=== PATIENT | male | born 1945 | race Caucasian/White ===

== ENCOUNTER 2021-11-29 04:20 | Inpatient (IN) | payer MEDICARE, OTHER ==
[~2021-11-29] VITALS: Ht 180.3 cm; Wt 98.9 kg
[~2021-11-29 04:20] MED LIST: AMLO1CAP2 PO; CIPR2.5D13 EACHEYE; ESCI10TA PO; FERR-43 PO; GABA600T PO; GLIP10TA10 PO; LOSA100T32 PO; OMEP40CA20 PO; OXYB15TA9 PO; REFRESH OP
[2021-11-29] MEDS ORDERED: ONDANSETRON HCL 4MG/2ML INJ IV STA (04:41)
[2021-11-29] MEDS ORDERED: VANCOMYCIN 1G PREMIX 200 ML IV ONE (04:45)
[2021-11-29] MEDS ORDERED: SODIUM CHLORIDE 0.9% 500 ML IV ONE (04:45)
[2021-11-29] MEDS ORDERED: PIPERACILLIN/TAZ 3.375G PREMIX 50 ML IV ONE (04:45)
[2021-11-29] MEDS: ACETAMINOPHEN 325MG TABLET PO STA ×2 (05:14→05:21)
[2021-11-29 05:17] LABS: HEMOGLOBIN. 10.5 g/dL (14.0-18.0); MEAN CORPUSCULAR VOLUME 91.8 fL (80.0-94.0); MEAN PLATELET VOLUME 8.2 fl (7.4-10.4); PLATELET 201 x1000/uL (130-400); RED BLOOD CELL COUNT 3.49 mill/uL (4.7-6.1); RED CELL DISTRIBUTION WIDTH 14.1 % (11.6-14.6)
[2021-11-29 05:27] LABS: CHLORIDE 88 mEq/L (98-107)
[2021-11-29 06:06] LABS: CLARITY URINE CLOUDY (CLEAR); COLOR URINE YELLOW (YELLOW); KETONES URINE NEGATIVE (NEGATIVE); LEUKOCYTE ESTERASE URINE 1+ (NEGATIVE); NITRITE URINE NEGATIVE (NEGATIVE); OCCULT BLOOD URINE 3+ (NEGATIVE); PROTEIN URINE 4+ (NEGATIVE); UROBILINOGEN URINE 0.2 E.U./dL (0.2-1.0)
[2021-11-29] MEDS ORDERED: MAGNESIUM/ALUMINUM HYDROXIDE/SIMETHICONE 30ML UDC PO PRN (07:30)
[2021-11-29] MEDS ORDERED: ENOXAPARIN 40MG/0.4ML SYR SUBCUT SCH (07:30)
[2021-11-29 07:43] LABS: PLATELET ESTIMATE NORMAL
[2021-11-29 07:54] LABS: BG BASE EXCESS -2.1 mmol/L (-2.0-2.0); BG CARBOXYHEMOGLOBIN 0.7 % (0.5-1.5); BG DEOXYHEMOGLOBIN 2.1 % (0.0-5.0); BG FRACTION INSPIRED OXYGEN 50; BG HCO3 ACT 23.3 mmol/L (22.0-26.0); BG METHEMOGLOBIN 0.3 % (0.0-1.5); BG OXYGEN SATURATION 97.9 % (92.0-98.5); BG OXYHEMOGLOBIN 96.9 % (94.0-97.0); BG PCO2 42.2 mmHg (35.0-45.0); BG PH 7.359 (7.350-7.450); BG PO2 109.2 mmHg (75.0-100.0); BG SAMPLE SITE RIGHT RADIAL; BG TOTAL HEMOGLOBIN 10.2 g/dL (12.0-18.0); BG VENT MODE MASK - SIMPLE
[2021-11-29] MEDS ORDERED: CEFTRIAXONE 1 G PREMIX 50 ML IV SCH (08:30)
[2021-11-29] MEDS: ACETAMINOPHEN 650MG SUPP PR ONE ×2 (08:55→10:30)
[2021-11-29] MEDS ORDERED: AZITHROMYCIN 500MG/250ML 250 ML IV SCH (09:30)
[2021-11-29] MEDS: SODIUM CHLORIDE 0.45% 1,000 ML IV SCH ×2 (09:38→23:31)
[2021-11-29] MEDS: ENOXAPARIN 30MG/0.3ML SYR SUBCUT SCH (09:39)
[2021-11-29] MEDS ORDERED: DEXTROSE 50% WATER 50ML SYRINGE IV PRN (11:45)
[2021-11-29] MEDS: BLOOD SUGAR DIAGNOSTIC STRIP TEST SCH ×2 (12:00→18:00)
[2021-11-29] MEDS: INSULIN LISPRO (HIGH DOSE) 100 UNITS/ML SUBCUT SCH ×2 (13:07→20:48)
[2021-11-29 18:58] VITALS: BP 158/62
[2021-11-29] MEDS ORDERED: ZOLP10TA2 PO (19:24)
[2021-11-29] MEDS ORDERED: SALM50DI INH (19:24)
[2021-11-29] MEDS ORDERED: POTA20TA82 MT (19:24)
[2021-11-29] MEDS ORDERED: LEVO75TA7 PO (19:24)
[2021-11-29] MEDS ORDERED: ESCI5SOL2 MT (19:24)
[2021-11-29] MEDS ORDERED: CLOP-31 PO (19:24)
[2021-11-29] MEDS ORDERED: LIP40 PO (19:24)
[2021-11-29] MEDS ORDERED: PREG75CA PO (19:24)
[2021-11-29] MEDS ORDERED: LEVO75TA7 MT (19:24)
[2021-11-29 20:00] VITALS: BP 115/45
[2021-11-29] MEDS ORDERED: IPRATROPIUM/ALBUTEROL 0.5-3(2.5)MG/3ML NEB HHN PRN (20:45)
[2021-11-29 22:00] VITALS: BP 127/51
[2021-11-30] VITALS (11 sets, daily range): BP systolic 107–133; BP diastolic 42–56
[2021-11-30] MEDS: IPRATROPIUM/ALBUTEROL 0.5-3(2.5)MG/3ML NEB HHN SCH ×6 (01:19→21:41)
[2021-11-30] MEDS: ACETYLCYSTEINE 100MG/ML 10% VIAL 4ML INH SCH ×2 (01:28→10:15)
[2021-11-30] MEDS: ACETAMINOPHEN 325MG TABLET PO PRN ×4 (02:06→19:09)
[2021-11-30] MEDS: INSULIN LISPRO (HIGH DOSE) 100 UNITS/ML SUBCUT SCH ×4 (05:54→17:10)
[2021-11-30] MEDS: BLOOD SUGAR DIAGNOSTIC STRIP TEST SCH ×4 (05:55→16:47)
[2021-11-30 06:50] LABS: HEMATOCRIT. 26.2 % (42.0-52.0); MEAN CORPUSCULAR HEMOGLOBIN 31.2 pg (28.0-32.0); MEAN CORPUSCULAR VOLUME 91.4 fL (80.0-94.0); PLATELET 182 x1000/uL (130-400); RED BLOOD CELL COUNT 2.87 mill/uL (4.7-6.1); RED CELL DISTRIBUTION WIDTH 14.6 % (11.6-14.6)
[2021-11-30 07:05] LABS: CHLORIDE 89 mEq/L (98-107)
[2021-11-30 07:13] LABS: LDL CHOLESTEROL 30 mg/dL (5-100)
[2021-11-30 07:15] LABS: HDL CHOLESTEROL 16 mg/dL (40-59)
[2021-11-30] MEDS: ENOXAPARIN 30MG/0.3ML SYR SUBCUT SCH (08:31)
[2021-11-30] MEDS: CEFTRIAXONE 1,000 MG in DEXTROSE 5% WATER 50 ML IV SCH (08:32)
[2021-11-30] MEDS: SODIUM CHLORIDE 0.45% 1,000 ML IV SCH ×2 (08:32→21:51)
[2021-11-30] MEDS: AZITHROMYCIN 500 MG in DEXT 5% WATER 250 ML IV SCH (09:35)
[2021-11-30] MEDS ORDERED: POTASSIUM CHLORIDE INJ 40 MEQ in DEXT 5% WATER 250 ML IV ONE (10:15)
[2021-11-30] MEDS: KCL 20MEQ/100ML X 2 FOR TOTAL KCL 40MEQ/200ML IV SCH ×2 (11:51→14:48)
[2021-11-30 14:06] LABS: CREATINE KINASE 24893 IU/L (39-308)
[2021-11-30 16:59] LABS: PLATELET ESTIMATE NORMAL
[2021-12-01] VITALS (7 sets, daily range): BP systolic 95–138; BP diastolic 48–59
[2021-12-01] MEDS: INSULIN LISPRO (HIGH DOSE) 100 UNITS/ML SUBCUT SCH ×5 (00:36→23:41)
[2021-12-01] MEDS: IPRATROPIUM/ALBUTEROL 0.5-3(2.5)MG/3ML NEB HHN SCH ×6 (00:50→20:33)
[2021-12-01] MEDS: ACETYLCYSTEINE 100MG/ML 10% VIAL 4ML INH SCH ×3 (00:51→16:38)
[2021-12-01] MEDS: BLOOD SUGAR DIAGNOSTIC STRIP TEST SCH ×5 (06:00→23:41)
[2021-12-01 07:14] LABS: CHLORIDE 90 mEq/L (98-107)
[2021-12-01] MEDS: AZITHROMYCIN 500 MG in DEXT 5% WATER 250 ML IV SCH (08:59)
[2021-12-01] MEDS: CEFTRIAXONE 1,000 MG in DEXTROSE 5% WATER 50 ML IV SCH (08:59)
[2021-12-01] MEDS: ACETAMINOPHEN 325MG TABLET PO PRN ×2 (09:00→23:05)
[2021-12-01] MEDS: ENOXAPARIN 30MG/0.3ML SYR SUBCUT SCH (09:02)
[2021-12-01] MEDS ORDERED: LACTULOSE 20G/30ML UDC PO NR (11:45)
[2021-12-01] MEDS ORDERED: VANCOMYCIN 500MG PREMIX 100 ML IV SCH (13:00)
[2021-12-01] MEDS: SODIUM CHLORIDE 0.45% 1,000 ML IV SCH (13:56)
[2021-12-01] MEDS: ONDANSETRON HCL 4MG/2ML INJ IV PRN (19:15)
[2021-12-01 21:18] LABS: HEPATITIS B SURFACE ANTIGEN NEGATIVE
[2021-12-02] VITALS: BP 123/51
[2021-12-02] MEDS: IPRATROPIUM/ALBUTEROL 0.5-3(2.5)MG/3ML NEB HHN SCH ×6 (00:07→22:51)
[2021-12-02] MEDS: ACETYLCYSTEINE 100MG/ML 10% VIAL 4ML INH SCH ×3 (00:07→12:52)
[2021-12-02] MEDS: SODIUM CHLORIDE 0.45% 1,000 ML IV SCH (01:14)
[2021-12-02 04:00] VITALS: BP 108/44
[2021-12-02] MEDS: ACETAMINOPHEN 325MG TABLET PO PRN ×2 (04:48→08:49)
[2021-12-02] MEDS: BLOOD SUGAR DIAGNOSTIC STRIP TEST SCH ×4 (05:47→23:35)
[2021-12-02] MEDS: INSULIN LISPRO (HIGH DOSE) 100 UNITS/ML SUBCUT SCH ×4 (05:47→23:35)
[2021-12-02 08:00] VITALS: BP 124/44
[2021-12-02 08:01] LABS: HEMATOCRIT. 27.5 % (42.0-52.0); HEMOGLOBIN. 9.1 g/dL (14.0-18.0); MEAN CORPUSCULAR HEMOGLOBIN 30.3 pg (28.0-32.0); MEAN CORPUSCULAR VOLUME 91.7 fL (80.0-94.0); MEAN PLATELET VOLUME 8.4 fl (7.4-10.4); PLATELET 187 x1000/uL (130-400); RED CELL DISTRIBUTION WIDTH 14.6 % (11.6-14.6)
[2021-12-02 08:14] LABS: CHLORIDE 90 mEq/L (98-107)
[2021-12-02] MEDS ORDERED: SODIUM CHLORIDE 0.9% 1,000 ML IV SCH (08:30)
[2021-12-02] MEDS: CEFTRIAXONE 1,000 MG in DEXTROSE 5% WATER 50 ML IV SCH (08:48)
[2021-12-02] MEDS: AZITHROMYCIN 500 MG in DEXT 5% WATER 250 ML IV SCH (08:48)
[2021-12-02] MEDS: ENOXAPARIN 30MG/0.3ML SYR SUBCUT SCH (08:49)
[2021-12-02 09:06] LABS: ANTI-NUCLEAR ANTIBODIES DIRECT Negative (Negative)
[2021-12-02 12:13] VITALS: BP 116/55
[2021-12-02] MEDS: MEROPENEM 500 MG in SODIUM CHLORIDE 0.9% 50 ML IV SCH (14:40)
[2021-12-02 15:16] LABS: PLATELET ESTIMATE NORMAL
[2021-12-02 16:00] VITALS: BP 117/46
[2021-12-02 20:00] VITALS: BP 131/56
[2021-12-02] MEDS ORDERED: POTASSIUM CHLORIDE 20MEQ TABLET SR PO NR (20:00)
[2021-12-02] MEDS: EPOETIN ALFA-EPBX 10,000 UNIT/ML VIAL SUBCUT SCH (22:44)
[2021-12-03] VITALS: BP 127/58
[2021-12-03] MEDS: ACETAMINOPHEN 325MG TABLET PO PRN (00:42)
[2021-12-03 04:00] VITALS: BP 110/47
[2021-12-03] MEDS: INSULIN LISPRO (HIGH DOSE) 100 UNITS/ML SUBCUT SCH ×3 (06:02→17:15)
[2021-12-03] MEDS: BLOOD SUGAR DIAGNOSTIC STRIP TEST SCH ×3 (06:02→17:15)
[2021-12-03 08:00] VITALS: BP 136/51
[2021-12-03] MEDS: AZITHROMYCIN 500 MG in DEXT 5% WATER 250 ML IV SCH (08:13)
[2021-12-03] MEDS: ENOXAPARIN 30MG/0.3ML SYR SUBCUT SCH (08:14)
[2021-12-03] MEDS: ACETYLCYSTEINE 100MG/ML 10% VIAL 4ML INH SCH ×3 (08:34→22:56)
[2021-12-03] MEDS: IPRATROPIUM/ALBUTEROL 0.5-3(2.5)MG/3ML NEB HHN SCH ×4 (08:34→22:55)
[2021-12-03] MEDS ORDERED: GUAIFENESIN/DM 600MG/30MG ER TAB 12HR PO PRN (11:00)
[2021-12-03 12:00] VITALS: BP 129/50
[2021-12-03] MEDS: MEROPENEM 500 MG in SODIUM CHLORIDE 0.9% 50 ML IV SCH (12:27)
[2021-12-03 13:07] LABS: HEMATOCRIT 27.3 % (42.0-52.0); HEMOGLOBIN 8.8 g/dL (14.0-18.0); MEAN CORPUSCULAR HEMOGLOBIN 29.9 pg (28.0-32.0); MEAN CORPUSCULAR VOLUME 92.4 fL (80.0-94.0); PLATELET 205 x1000/uL (130-400); RED BLOOD CELL COUNT 2.95 mill/uL (4.7-6.1); RED CELL DISTRIBUTION WIDTH 15.1 % (11.6-14.6)
[2021-12-03 13:21] LABS: CHLORIDE 90 mEq/L (98-107)
[2021-12-03 16:00] VITALS: BP 145/59
[2021-12-03] MEDS: KCL 20MEQ/100ML PREMIX 100 ML IV SCH ×3 (17:13→23:59)
[2021-12-03] MEDS ORDERED: NALOXONE HCL 0.4MG/ML VIAL IV PRN (17:45)
[2021-12-03] MEDS: HYDROCODONE/ACETAMINOPHEN 5/325MG TABLET PO PRN (17:50)
[2021-12-03 20:00] VITALS: BP 112/51
[2021-12-04] VITALS: BP 125/47
[2021-12-04] MEDS: VANCOMYCIN 1GM PMX (XELLIA) 200 ML IV NR ×2 (00:58→02:27)
[2021-12-04] MEDS: INSULIN LISPRO (HIGH DOSE) 100 UNITS/ML SUBCUT SCH ×4 (00:59→18:55)
[2021-12-04] MEDS: IPRATROPIUM/ALBUTEROL 0.5-3(2.5)MG/3ML NEB HHN SCH ×5 (01:59→20:20)
[2021-12-04 04:00] VITALS: BP 145/56
[2021-12-04] MEDS: ACETAMINOPHEN 325MG TABLET PO PRN (06:24)
[2021-12-04 07:14] LABS: HEMATOCRIT. 27.4 % (42.0-52.0); HEMOGLOBIN. 9.1 g/dL (14.0-18.0); MEAN CORPUSCULAR HEMOGLOBIN 30.4 pg (28.0-32.0); MEAN CORPUSCULAR VOLUME 91.8 fL (80.0-94.0); MEAN PLATELET VOLUME 8.1 fl (7.4-10.4); PLATELET 207 x1000/uL (130-400); RED BLOOD CELL COUNT 2.99 mill/uL (4.7-6.1); RED CELL DISTRIBUTION WIDTH 14.6 % (11.6-14.6)
[2021-12-04 08:00] VITALS: BP 136/53
[2021-12-04] MEDS: ACETYLCYSTEINE 100MG/ML 10% VIAL 4ML INH SCH ×2 (08:30→16:40)
[2021-12-04] MEDS: ENOXAPARIN 30MG/0.3ML SYR SUBCUT SCH (09:23)
[2021-12-04 10:39] LABS: PLATELET ESTIMATE NORMAL
[2021-12-04] MEDS ORDERED: POTASSIUM CHLORIDE 20MEQ TABLET SR PO NR (11:45)
[2021-12-04 12:00] VITALS: BP 119/49
[2021-12-04] MEDS: BLOOD SUGAR DIAGNOSTIC STRIP TEST SCH ×2 (12:52→18:04)
[2021-12-04] MEDS: MEROPENEM 500 MG in SODIUM CHLORIDE 0.9% 50 ML IV SCH (13:00)
[2021-12-04 16:00] VITALS: BP 141/59
[2021-12-04] MEDS ORDERED: LORAZEPAM 2MG/ML CPJ IV NR (17:00)
[2021-12-04 19:06] LABS: ACTIN (SMOOTH MUSCLE) ANTIBODY 5 Units (0-19); MITOCHONDRIAL M2 AB <20.0 Units (0.0-20.0)
[2021-12-04 20:10] VITALS: BP 120/51
[2021-12-05] MEDS: INSULIN LISPRO (HIGH DOSE) 100 UNITS/ML SUBCUT SCH ×5 (00:01→23:52)
[2021-12-05 00:10] VITALS: BP 152/55
[2021-12-05] MEDS: IPRATROPIUM/ALBUTEROL 0.5-3(2.5)MG/3ML NEB HHN SCH ×6 (00:38→21:54)
[2021-12-05] MEDS: ACETAMINOPHEN 325MG TABLET PO PRN ×2 (01:26→22:05)
[2021-12-05 04:00] VITALS: BP 114/62
[2021-12-05] MEDS: BLOOD SUGAR DIAGNOSTIC STRIP TEST SCH ×4 (06:00→18:00)
[2021-12-05 07:36] LABS: HEMATOCRIT. 27.3 % (42.0-52.0); MEAN CORPUSCULAR HEMOGLOBIN 30.5 pg (28.0-32.0); MEAN CORPUSCULAR VOLUME 92.4 fL (80.0-94.0); MEAN PLATELET VOLUME 7.8 fl (7.4-10.4); PLATELET 209 x1000/uL (130-400); RED BLOOD CELL COUNT 2.95 mill/uL (4.7-6.1); RED CELL DISTRIBUTION WIDTH 14.9 % (11.6-14.6)
[2021-12-05 08:00] VITALS: BP 131/49
[2021-12-05 12:00] VITALS: BP 137/51
[2021-12-05] MEDS ORDERED: POTASSIUM CHLORIDE 20MEQ TABLET SR PO NR (13:15)
[2021-12-05] MEDS: MEROPENEM 500 MG in SODIUM CHLORIDE 0.9% 50 ML IV SCH (13:16)
[2021-12-05] MEDS: HYDROCODONE/ACETAMINOPHEN 5/325MG TABLET PO PRN (13:18)
[2021-12-05] MEDS: ENOXAPARIN 30MG/0.3ML SYR SUBCUT SCH (13:54)
[2021-12-05 14:15] LABS: PLATELET ESTIMATE NORMAL
[2021-12-05 16:00] VITALS: BP 117/53
[2021-12-05 20:00] VITALS: BP 130/53
[2021-12-05] MEDS: EPOETIN ALFA-EPBX 10,000 UNIT/ML VIAL SUBCUT SCH (22:05)
[2021-12-06] VITALS (62 sets, daily range): BP systolic 63–188; BP diastolic 33–85
[2021-12-06] MEDS: HYDROCODONE/ACETAMINOPHEN 5/325MG TABLET PO PRN ×2 (01:07→07:16)
[2021-12-06] MEDS: IPRATROPIUM/ALBUTEROL 0.5-3(2.5)MG/3ML NEB HHN SCH ×4 (04:48→20:38)
[2021-12-06] MEDS: ACETAMINOPHEN 325MG TABLET PO PRN (05:24)
[2021-12-06 05:39] LABS: HEMATOCRIT. 29.9 % (42.0-52.0); HEMOGLOBIN. 9.6 g/dL (14.0-18.0); MEAN CORPUSCULAR HEMOGLOBIN 29.7 pg (28.0-32.0); MEAN CORPUSCULAR VOLUME 92.5 fL (80.0-94.0); MEAN PLATELET VOLUME 8.1 fl (7.4-10.4); PLATELET 246 x1000/uL (130-400); RED BLOOD CELL COUNT 3.23 mill/uL (4.7-6.1); RED CELL DISTRIBUTION WIDTH 14.9 % (11.6-14.6)
[2021-12-06 05:51] LABS: INR 1.2; PROTHROMBIN TIME 12.6 sec (9.6-11.0)
[2021-12-06] MEDS: INSULIN LISPRO (HIGH DOSE) 100 UNITS/ML SUBCUT SCH ×3 (06:56→18:46)
[2021-12-06] MEDS ORDERED: MIDAZOLAM HCL 100 MG in SODIUM CHLORIDE 0.9% 80 ML IV PRN (09:00)
[2021-12-06] MEDS: ENOXAPARIN 30MG/0.3ML SYR SUBCUT SCH (09:00)
[2021-12-06] MEDS ORDERED: VANCOMYCIN 1GM PMX (XELLIA) 200 ML IV NR ×2 (09:00→15:00)
[2021-12-06] MEDS: FENTANYL CITRATE/PF 2,500 MCG in SODIUM CHLORIDE 0.9% 200 ML IV PRN (10:21)
[2021-12-06] MEDS: NOREPINEPHRINE 32 MG in DEXT 5% WATER 218 ML IV PRN (10:22)
[2021-12-06 10:44] LABS: BG BASE EXCESS -5.4 mmol/L (-2.0-2.0); BG DEOXYHEMOGLOBIN 0.6 % (0.0-5.0); BG FRACTION INSPIRED OXYGEN 100; BG HCO3 ACT 20.4 mmol/L (22.0-26.0); BG METHEMOGLOBIN 0.3 % (0.0-1.5); BG OXYGEN SATURATION 99.4 % (92.0-98.5); BG OXYHEMOGLOBIN 99.1 % (94.0-97.0); BG PCO2 40.5 mmHg (35.0-45.0); BG PH 7.319 (7.350-7.450); BG PO2 240.7 mmHg (75.0-100.0); BG SAMPLE SITE RIGHT RADIAL; BG VENT MODE VENT - AC
[2021-12-06] MEDS: BLOOD SUGAR DIAGNOSTIC STRIP TEST SCH ×2 (12:00→18:48)
[2021-12-06] MEDS ORDERED: ETOMIDATE 2MG/ML 10ML VIAL IV ONE (12:23)
[2021-12-06] MEDS ORDERED: VECURONIUM BROMIDE 10 MG/VIAL IV ONE (12:23)
[2021-12-06] MEDS ORDERED: SODIUM CHLORIDE 0.9% 10ML VIAL ONE (12:23)
[2021-12-06] MEDS: MEROPENEM 500 MG in SODIUM CHLORIDE 0.9% 50 ML IV SCH (13:37)
[2021-12-06] MEDS ORDERED: LIDOCAINE HCL 1% 10 MG/ML 10ML VIAL ONE (13:54)
[2021-12-06] MEDS: ACETYLCYSTEINE 100MG/ML 10% VIAL 4ML INH SCH (16:20)
[2021-12-06] MEDS ORDERED: SODIUM CHLORIDE 3% FOR INH 4ML UD NEB INH NR (17:30)
[2021-12-06 19:26] LABS: PLATELET ESTIMATE NORMAL
[2021-12-07] VITALS (85 sets, daily range): BP systolic 81–183; BP diastolic 39–90
[2021-12-07] MEDS: IPRATROPIUM/ALBUTEROL 0.5-3(2.5)MG/3ML NEB HHN SCH ×5 (00:15→20:49)
[2021-12-07] MEDS: ACETYLCYSTEINE 100MG/ML 10% VIAL 4ML INH SCH ×3 (00:15→17:04)
[2021-12-07] MEDS: INSULIN LISPRO (HIGH DOSE) 100 UNITS/ML SUBCUT SCH ×4 (00:57→18:08)
[2021-12-07] MEDS: BLOOD SUGAR DIAGNOSTIC STRIP TEST SCH ×4 (00:58→18:05)
[2021-12-07 05:21] LABS: HEMATOCRIT. 30.3 % (42.0-52.0); HEMOGLOBIN. 9.7 g/dL (14.0-18.0); MEAN CORPUSCULAR HEMOGLOBIN 29.9 pg (28.0-32.0); MEAN CORPUSCULAR VOLUME 93.8 fL (80.0-94.0); MEAN PLATELET VOLUME 8.1 fl (7.4-10.4); PLATELET 269 x1000/uL (130-400); RED BLOOD CELL COUNT 3.23 mill/uL (4.7-6.1); RED CELL DISTRIBUTION WIDTH 15.1 % (11.6-14.6)
[2021-12-07 05:49] LABS: PHOSPHORUS 7.5 mg/dL (2.5-4.9)
[2021-12-07] MEDS: ENOXAPARIN 30MG/0.3ML SYR SUBCUT SCH (08:30)
[2021-12-07 09:18] LABS: PLATELET ESTIMATE NORMAL
[2021-12-07 09:37] LABS: BG BASE EXCESS -4.5 mmol/L (-2.0-2.0); BG CARBOXYHEMOGLOBIN 0.6 % (0.5-1.5); BG DEOXYHEMOGLOBIN 2.8 % (0.0-5.0); BG FRACTION INSPIRED OXYGEN 50; BG HCO3 ACT 20.7 mmol/L (22.0-26.0); BG METHEMOGLOBIN 0.3 % (0.0-1.5); BG OXYGEN SATURATION 97.2 % (92.0-98.5); BG OXYHEMOGLOBIN 96.3 % (94.0-97.0); BG PCO2 38.4 mmHg (35.0-45.0); BG PH 7.349 (7.350-7.450); BG PO2 92.8 mmHg (75.0-100.0); BG SAMPLE SITE LEFT RADIAL; BG TOTAL HEMOGLOBIN 10.3 g/dL (12.0-18.0); BG TOTAL RESPIRATORY RATE 18 b/min; BG VENT MODE VENT - AC
[2021-12-07] MEDS ORDERED: HEPARIN SODIUM 1,000 UNIT/1ML VIAL IV NR (14:45)
[2021-12-07 17:29] LABS: HEPATITIS B SURFACE ANTIGEN NEGATIVE
[2021-12-07] MEDS: MEROPENEM 500 MG in SODIUM CHLORIDE 0.9% 50 ML IV SCH (18:07)
[2021-12-07] MEDS: EPOETIN ALFA-EPBX 10,000 UNIT/ML VIAL SUBCUT SCH (21:27)
[2021-12-07] MEDS: INSULIN GLARGINE UD 100 UNITS/ML SYR SUBCUT SCH (21:32)
[2021-12-08] VITALS (75 sets, daily range): BP systolic 83–202; BP diastolic 40–86
[2021-12-08] MEDS: IPRATROPIUM/ALBUTEROL 0.5-3(2.5)MG/3ML NEB HHN SCH ×6 (00:12→20:39)
[2021-12-08] MEDS: ACETYLCYSTEINE 100MG/ML 10% VIAL 4ML INH SCH ×3 (00:12→15:55)
[2021-12-08] MEDS: INSULIN LISPRO (HIGH DOSE) 100 UNITS/ML SUBCUT SCH ×4 (00:47→17:08)
[2021-12-08] MEDS: BLOOD SUGAR DIAGNOSTIC STRIP TEST SCH ×4 (00:48→17:03)
[2021-12-08 06:15] LABS: HEMATOCRIT. 28.3 % (42.0-52.0); HEMOGLOBIN. 9.1 g/dL (14.0-18.0); MEAN CORPUSCULAR HEMOGLOBIN 30.3 pg (28.0-32.0); MEAN CORPUSCULAR VOLUME 94.6 fL (80.0-94.0); MEAN PLATELET VOLUME 7.7 fl (7.4-10.4); PLATELET 245 x1000/uL (130-400); RED CELL DISTRIBUTION WIDTH 15.3 % (11.6-14.6)
[2021-12-08 07:58] LABS: PLATELET ESTIMATE NORMAL
[2021-12-08] MEDS: PANTOPRAZOLE SODIUM 40 MG/VIAL IV SCH (08:24)
[2021-12-08] MEDS: ENOXAPARIN 40MG/0.4ML SYR SUBCUT SCH (08:25)
[2021-12-08 09:23] LABS: BG BASE EXCESS -2.2 mmol/L (-2.0-2.0); BG CARBOXYHEMOGLOBIN 0.3 % (0.5-1.5); BG DEOXYHEMOGLOBIN 1.6 % (0.0-5.0); BG FRACTION INSPIRED OXYGEN 40; BG HCO3 ACT 22.9 mmol/L (22.0-26.0); BG METHEMOGLOBIN 0.3 % (0.0-1.5); BG OXYGEN SATURATION 98.4 % (92.0-98.5); BG OXYHEMOGLOBIN 97.8 % (94.0-97.0); BG PCO2 40.2 mmHg (35.0-45.0); BG PH 7.373 (7.350-7.450); BG PO2 127.5 mmHg (75.0-100.0); BG SAMPLE SITE LEFT RADIAL; BG TOTAL HEMOGLOBIN 10.1 g/dL (12.0-18.0); BG TOTAL RESPIRATORY RATE 19 b/min; BG VENT MODE VENT - AC
[2021-12-08] MEDS ORDERED: VANCOMYCIN 750MG PREMIX 150 ML IV NR (13:00)
[2021-12-08] MEDS: MIDODRINE HCL 5MG TABLET PO SCH ×2 (13:59→17:03)
[2021-12-08] MEDS: MEROPENEM 500 MG in SODIUM CHLORIDE 0.9% 50 ML IV SCH (15:18)
[2021-12-08] MEDS: INSULIN GLARGINE UD 100 UNITS/ML SYR SUBCUT SCH (21:20)
[2021-12-09] VITALS (87 sets, daily range): BP systolic 88–165; BP diastolic 39–70
[2021-12-09] MEDS: ACETAMINOPHEN 325MG TABLET PO PRN ×3 (00:03→23:14)
[2021-12-09] MEDS: INSULIN LISPRO (HIGH DOSE) 100 UNITS/ML SUBCUT SCH ×4 (00:09→17:27)
[2021-12-09] MEDS: BLOOD SUGAR DIAGNOSTIC STRIP TEST SCH ×4 (00:10→17:19)
[2021-12-09] MEDS: IPRATROPIUM/ALBUTEROL 0.5-3(2.5)MG/3ML NEB HHN SCH ×6 (00:45→20:26)
[2021-12-09] MEDS: ACETYLCYSTEINE 100MG/ML 10% VIAL 4ML INH SCH ×3 (00:45→16:54)
[2021-12-09 05:49] LABS: HEMOGLOBIN. 9.2 g/dL (14.0-18.0); MEAN CORPUSCULAR HEMOGLOBIN 30.5 pg (28.0-32.0); MEAN CORPUSCULAR VOLUME 95.8 fL (80.0-94.0); MEAN PLATELET VOLUME 8.2 fl (7.4-10.4); PLATELET 289 x1000/uL (130-400); RED BLOOD CELL COUNT 3.02 mill/uL (4.7-6.1); RED CELL DISTRIBUTION WIDTH 15.2 % (11.6-14.6)
[2021-12-09 08:17] LABS: BG BASE EXCESS -3.7 mmol/L (-2.0-2.0); BG CARBOXYHEMOGLOBIN 0.5 % (0.5-1.5); BG DEOXYHEMOGLOBIN 2.3 % (0.0-5.0); BG HCO3 ACT 20.4 mmol/L (22.0-26.0); BG METHEMOGLOBIN 0.3 % (0.0-1.5); BG OXYGEN SATURATION 97.7 % (92.0-98.5); BG OXYHEMOGLOBIN 96.9 % (94.0-97.0); BG PCO2 33.3 mmHg (35.0-45.0); BG PH 7.406 (7.350-7.450); BG PO2 101.6 mmHg (75.0-100.0); BG SAMPLE SITE LEFT RADIAL; BG TOTAL HEMOGLOBIN 9.4 g/dL (12.0-18.0); BG VENT MODE VENT - AC
[2021-12-09] MEDS: MIDODRINE HCL 5MG TABLET PO SCH ×3 (08:23→16:35)
[2021-12-09] MEDS: PANTOPRAZOLE SODIUM 40 MG/VIAL IV SCH (08:23)
[2021-12-09] MEDS: ENOXAPARIN 40MG/0.4ML SYR SUBCUT SCH (08:24)
[2021-12-09] MEDS ORDERED: SODIUM POLYSTYRENE SULFONATE 15 G/60 ML BOT PO NR (10:00)
[2021-12-09 12:12] LABS: NUCLEATED RED BLOOD CELLS 3 /100 WBC; PLATELET ESTIMATE NORMAL
[2021-12-09] MEDS: MEROPENEM 500 MG in SODIUM CHLORIDE 0.9% 50 ML IV SCH (16:35)
[2021-12-09] MEDS: FENTANYL CITRATE/PF 2,500 MCG in SODIUM CHLORIDE 0.9% 200 ML IV PRN (17:25)
[2021-12-09] MEDS ORDERED: INSULIN GLARGINE UD 100 UNITS/ML SYR SUBCUT SCH (22:00)
[2021-12-09] MEDS: ONDANSETRON HCL 4MG/2ML INJ IV PRN (23:13)
[2021-12-10] VITALS (85 sets, daily range): BP systolic 85–217; BP diastolic 40–84
[2021-12-10] MEDS: ACETYLCYSTEINE 100MG/ML 10% VIAL 4ML INH SCH ×3 (00:35→15:44)
[2021-12-10] MEDS: IPRATROPIUM/ALBUTEROL 0.5-3(2.5)MG/3ML NEB HHN SCH ×6 (00:35→20:21)
[2021-12-10] MEDS: INSULIN LISPRO (HIGH DOSE) 100 UNITS/ML SUBCUT SCH ×4 (00:38→17:31)
[2021-12-10 05:58] LABS: HEMATOCRIT. 28.5 % (42.0-52.0); MEAN CORPUSCULAR HEMOGLOBIN 30.2 pg (28.0-32.0); MEAN CORPUSCULAR VOLUME 95.7 fL (80.0-94.0); MEAN PLATELET VOLUME 8.3 fl (7.4-10.4); PLATELET 264 x1000/uL (130-400); RED BLOOD CELL COUNT 2.98 mill/uL (4.7-6.1); RED CELL DISTRIBUTION WIDTH 15.3 % (11.6-14.6)
[2021-12-10] MEDS: BLOOD SUGAR DIAGNOSTIC STRIP TEST SCH ×4 (06:48→17:30)
[2021-12-10] MEDS: MIDODRINE HCL 5MG TABLET PO SCH ×4 (09:00→17:40)
[2021-12-10] MEDS: PANTOPRAZOLE SODIUM 40 MG/VIAL IV SCH (09:07)
[2021-12-10] MEDS: ACETAMINOPHEN 325MG TABLET PO PRN ×2 (09:08→18:16)
[2021-12-10] MEDS: ENOXAPARIN 40MG/0.4ML SYR SUBCUT SCH (09:08)
[2021-12-10 10:20] LABS: BG BASE EXCESS -2.7 mmol/L (-2.0-2.0); BG CARBOXYHEMOGLOBIN 0.5 % (0.5-1.5); BG DEOXYHEMOGLOBIN 1.4 % (0.0-5.0); BG FRACTION INSPIRED OXYGEN 40; BG HCO3 ACT 21.1 mmol/L (22.0-26.0); BG METHEMOGLOBIN 0.2 % (0.0-1.5); BG OXYGEN SATURATION 98.6 % (92.0-98.5); BG OXYHEMOGLOBIN 97.9 % (94.0-97.0); BG PCO2 32.6 mmHg (35.0-45.0); BG PH 7.429 (7.350-7.450); BG PO2 130.1 mmHg (75.0-100.0); BG SAMPLE SITE RIGHT RADIAL; BG TOTAL HEMOGLOBIN 9.2 g/dL (12.0-18.0); BG VENT MODE VENT - SIMV
[2021-12-10] MEDS ORDERED: LACTULOSE 20G/30ML UDC PO SCH (11:15)
[2021-12-10] MEDS ORDERED: LACTULOSE 20G/30ML UDC PO PRN (11:15)
[2021-12-10] MEDS: DOCUSATE SODIUM SUGAR FREE 100MG/10ML UDC NG SCH (13:04)
[2021-12-10 13:17] LABS: INR 1.2; PROTHROMBIN TIME 12.4 sec (9.6-11.0)
[2021-12-10] MEDS: MEROPENEM 500 MG in SODIUM CHLORIDE 0.9% 50 ML IV SCH (15:08)
[2021-12-10 16:19] LABS: NUCLEATED RED BLOOD CELLS 1 /100 WBC
[2021-12-10 16:20] LABS: PLATELET ESTIMATE NORMAL
[2021-12-10] MEDS: FENTANYL CITRATE/PF 2,500 MCG in SODIUM CHLORIDE 0.9% 200 ML IV PRN (16:22)
[2021-12-10] MEDS: NOREPINEPHRINE 32 MG in DEXT 5% WATER 218 ML IV PRN (17:16)
[2021-12-10] MEDS ORDERED: INSULIN GLARGINE UD 100 UNITS/ML SYR SUBCUT SCH (22:00)
[2021-12-11] VITALS (71 sets, daily range): BP systolic 97–161; BP diastolic 41–87
[2021-12-11] MEDS: BLOOD SUGAR DIAGNOSTIC STRIP TEST SCH ×4 (00:23→17:59)
[2021-12-11] MEDS: IPRATROPIUM/ALBUTEROL 0.5-3(2.5)MG/3ML NEB HHN SCH ×6 (00:31→20:39)
[2021-12-11] MEDS: ACETYLCYSTEINE 100MG/ML 10% VIAL 4ML INH SCH ×3 (00:32→16:25)
[2021-12-11] MEDS: INSULIN LISPRO (HIGH DOSE) 100 UNITS/ML SUBCUT SCH ×4 (00:33→18:00)
[2021-12-11] MEDS: ACETAMINOPHEN 325MG TABLET PO PRN (04:21)
[2021-12-11 05:28] LABS: HEMATOCRIT. 29.9 % (42.0-52.0); HEMOGLOBIN. 9.6 g/dL (14.0-18.0); MEAN CORPUSCULAR HEMOGLOBIN 30.9 pg (28.0-32.0); MEAN CORPUSCULAR VOLUME 96.4 fL (80.0-94.0); MEAN PLATELET VOLUME 7.8 fl (7.4-10.4); PLATELET 228 x1000/uL (130-400); RED CELL DISTRIBUTION WIDTH 15.5 % (11.6-14.6)
[2021-12-11 06:51] LABS: PLATELET ESTIMATE NORMAL
[2021-12-11] MEDS: MIDODRINE HCL 5MG TABLET PO SCH ×3 (09:00→17:00)
[2021-12-11] MEDS ORDERED: VANCOMYCIN 500MG PREMIX 100 ML IV NR (10:00)
[2021-12-11] MEDS: PANTOPRAZOLE SODIUM 40 MG/VIAL IV SCH (10:15)
[2021-12-11] MEDS: DOCUSATE SODIUM SUGAR FREE 100MG/10ML UDC NG SCH (10:15)
[2021-12-11] MEDS: ENOXAPARIN 40MG/0.4ML SYR SUBCUT SCH (10:16)
[2021-12-11 13:46] LABS: BG BASE EXCESS -1.7 mmol/L (-2.0-2.0); BG CARBOXYHEMOGLOBIN 0.3 % (0.5-1.5); BG DEOXYHEMOGLOBIN 1.7 % (0.0-5.0); BG FRACTION INSPIRED OXYGEN 40; BG HCO3 ACT 23.1 mmol/L (22.0-26.0); BG METHEMOGLOBIN 0.3 % (0.0-1.5); BG OXYGEN SATURATION 98.3 % (92.0-98.5); BG OXYHEMOGLOBIN 97.7 % (94.0-97.0); BG PO2 136.5 mmHg (75.0-100.0); BG SAMPLE SITE LEFT RADIAL; BG TOTAL HEMOGLOBIN 9.7 g/dL (12.0-18.0); BG VENT MODE VENT - CPAP
[2021-12-11] MEDS: MEROPENEM 500 MG in SODIUM CHLORIDE 0.9% 50 ML IV SCH (15:20)
[2021-12-11] MEDS ORDERED: NALOXONE HCL 0.4MG/ML VIAL IV PRN (16:15)
[2021-12-11] MEDS: MORPHINE SULFATE 2 MG/ML CPJ (NOT FOR IM USE) IV PRN ×2 (16:25→20:55)
[2021-12-11] MEDS: INSULIN GLARGINE UD 100 UNITS/ML SYR SUBCUT SCH (22:15)
[2021-12-12] VITALS (66 sets, daily range): BP systolic 102–174; BP diastolic 34–74
[2021-12-12] MEDS: INSULIN LISPRO (HIGH DOSE) 100 UNITS/ML SUBCUT SCH ×5 (00:13→23:02)
[2021-12-12] MEDS: IPRATROPIUM/ALBUTEROL 0.5-3(2.5)MG/3ML NEB HHN SCH ×6 (00:26→20:24)
[2021-12-12] MEDS: ACETAMINOPHEN 325MG TABLET PO PRN ×2 (00:46→20:27)
[2021-12-12] MEDS: MORPHINE SULFATE 2 MG/ML CPJ (NOT FOR IM USE) IV PRN ×3 (02:57→23:02)
[2021-12-12 05:10] LABS: HEMATOCRIT. 29.6 % (42.0-52.0); HEMOGLOBIN. 9.2 g/dL (14.0-18.0); MEAN CORPUSCULAR HEMOGLOBIN 30.2 pg (28.0-32.0); MEAN CORPUSCULAR VOLUME 96.5 fL (80.0-94.0); MEAN PLATELET VOLUME 8.8 fl (7.4-10.4); PLATELET 197 x1000/uL (130-400); RED BLOOD CELL COUNT 3.06 mill/uL (4.7-6.1); RED CELL DISTRIBUTION WIDTH 15.8 % (11.6-14.6)
[2021-12-12] MEDS: BLOOD SUGAR DIAGNOSTIC STRIP TEST SCH ×5 (05:39→23:02)
[2021-12-12] MEDS: PANTOPRAZOLE SODIUM 40 MG/VIAL IV SCH (08:15)
[2021-12-12] MEDS: POLYVINYL ALCOHOL OPHTH DROPS 15ML LEFTEYE SCH ×5 (08:16→23:03)
[2021-12-12] MEDS: ENOXAPARIN 40MG/0.4ML SYR SUBCUT SCH (08:19)
[2021-12-12] MEDS: DOCUSATE SODIUM SUGAR FREE 100MG/10ML UDC NG SCH (08:19)
[2021-12-12] MEDS: MIDODRINE HCL 5MG TABLET PO SCH ×4 (08:19→17:00)
[2021-12-12 08:51] LABS: BG BASE EXCESS -2.7 mmol/L (-2.0-2.0); BG CARBOXYHEMOGLOBIN 0.1 % (0.5-1.5); BG DEOXYHEMOGLOBIN 1.4 % (0.0-5.0); BG FRACTION INSPIRED OXYGEN 40; BG HCO3 ACT 21.7 mmol/L (22.0-26.0); BG METHEMOGLOBIN 0.3 % (0.0-1.5); BG OXYGEN SATURATION 98.6 % (92.0-98.5); BG OXYHEMOGLOBIN 98.2 % (94.0-97.0); BG PCO2 35.8 mmHg (35.0-45.0); BG PO2 139.4 mmHg (75.0-100.0); BG SAMPLE SITE LEFT RADIAL; BG TOTAL HEMOGLOBIN 9.7 g/dL (12.0-18.0); BG TOTAL RESPIRATORY RATE 22 b/min; BG VENT MODE VENT - AC
[2021-12-12] MEDS: PREDNISOLONE ACETATE 1% OPHTH DROPS 5ML RIGHTEYE SCH ×2 (09:00→17:29)
[2021-12-12 10:08] LABS: PLATELET ESTIMATE NORMAL
[2021-12-12 10:58] LABS: BG BASE EXCESS -2.6 mmol/L (-2.0-2.0); BG CARBOXYHEMOGLOBIN 0.1 % (0.5-1.5); BG DEOXYHEMOGLOBIN 1.2 % (0.0-5.0); BG FRACTION INSPIRED OXYGEN 40; BG HCO3 ACT 21.2 mmol/L (22.0-26.0); BG METHEMOGLOBIN 0.3 % (0.0-1.5); BG OXYGEN SATURATION 98.8 % (92.0-98.5); BG OXYHEMOGLOBIN 98.4 % (94.0-97.0); BG PCO2 33.1 mmHg (35.0-45.0); BG PH 7.425 (7.350-7.450); BG PO2 140.8 mmHg (75.0-100.0); BG SAMPLE SITE LEFT RADIAL; BG TOTAL HEMOGLOBIN 9.8 g/dL (12.0-18.0); BG TOTAL RESPIRATORY RATE 23 b/min; BG VENT MODE VENT - CPAP
[2021-12-12] MEDS ORDERED: DOPAMINE 400MG/250ML PREMIX 250 ML IV SCH (13:30)
[2021-12-12] MEDS ORDERED: HEPARIN SODIUM 1,000 UNIT/1ML VIAL IV NR (17:00)
[2021-12-12] MEDS: MEROPENEM 500 MG in SODIUM CHLORIDE 0.9% 50 ML IV SCH (17:29)
[2021-12-12] MEDS: INSULIN GLARGINE UD 100 UNITS/ML SYR SUBCUT SCH (22:34)
[2021-12-13] VITALS (92 sets, daily range): BP systolic 95–162; BP diastolic 39–75
[2021-12-13] MEDS: IPRATROPIUM/ALBUTEROL 0.5-3(2.5)MG/3ML NEB HHN SCH ×6 (00:28→20:19)
[2021-12-13] MEDS: POLYVINYL ALCOHOL OPHTH DROPS 15ML LEFTEYE SCH ×5 (04:41→19:39)
[2021-12-13] MEDS: BLOOD SUGAR DIAGNOSTIC STRIP TEST SCH ×3 (05:10→18:27)
[2021-12-13] MEDS: INSULIN LISPRO (HIGH DOSE) 100 UNITS/ML SUBCUT SCH ×3 (05:10→18:29)
[2021-12-13 05:22] LABS: HEMATOCRIT. 31.4 % (42.0-52.0); HEMOGLOBIN. 9.8 g/dL (14.0-18.0); MEAN CORPUSCULAR HEMOGLOBIN 30.1 pg (28.0-32.0); MEAN CORPUSCULAR VOLUME 96.2 fL (80.0-94.0); MEAN PLATELET VOLUME 8.7 fl (7.4-10.4); PLATELET 205 x1000/uL (130-400); RED BLOOD CELL COUNT 3.26 mill/uL (4.7-6.1); RED CELL DISTRIBUTION WIDTH 16.1 % (11.6-14.6)
[2021-12-13 07:56] LABS: BG BASE EXCESS -0.9 mmol/L (-2.0-2.0); BG CARBOXYHEMOGLOBIN 0.3 % (0.5-1.5); BG DEOXYHEMOGLOBIN 1.1 % (0.0-5.0); BG HCO3 ACT 22.4 mmol/L (22.0-26.0); BG METHEMOGLOBIN 0.3 % (0.0-1.5); BG OXYGEN SATURATION 98.9 % (92.0-98.5); BG OXYHEMOGLOBIN 98.3 % (94.0-97.0); BG PCO2 32.2 mmHg (35.0-45.0); BG PO2 146.3 mmHg (75.0-100.0); BG SAMPLE SITE RIGHT RADIAL; BG TOTAL HEMOGLOBIN 10.3 g/dL (12.0-18.0); BG VENT MODE VENT - AC
[2021-12-13] MEDS: DOCUSATE SODIUM SUGAR FREE 100MG/10ML UDC NG SCH (08:50)
[2021-12-13] MEDS: PANTOPRAZOLE SODIUM 40 MG/VIAL IV SCH (08:50)
[2021-12-13] MEDS: ENOXAPARIN 30MG/0.3ML SYR SUBCUT SCH (08:51)
[2021-12-13] MEDS: PREDNISOLONE ACETATE 1% OPHTH DROPS 5ML RIGHTEYE SCH ×2 (08:51→16:17)
[2021-12-13] MEDS: MIDODRINE HCL 5MG TABLET PO SCH ×2 (08:51→12:27)
[2021-12-13] MEDS: ASPIRIN 81MG TABLET PO SCH (08:52)
[2021-12-13 09:07] LABS: NUCLEATED RED BLOOD CELLS 1 /100 WBC; PLATELET ESTIMATE NORMAL
[2021-12-13] MEDS ORDERED: MORPHINE SULFATE 2 MG/ML CPJ (NOT FOR IM USE) IV PRN (09:15)
[2021-12-13] MEDS: MORPHINE SULFATE 2 MG/ML CPJ (NOT FOR IM USE) IV PRN ×2 (09:44→19:39)
[2021-12-13] MEDS ORDERED: SENNOSIDES 8.6MG TABLET NG PRN (11:45)
[2021-12-13] MEDS: ACETAMINOPHEN 325MG TABLET PO PRN (11:49)
[2021-12-13] MEDS ORDERED: POLYETHYLENE GLYCOL 3350 (17GM) 1 DOSE PACK NG NR (12:00)
[2021-12-13] MEDS: MEROPENEM 500 MG in SODIUM CHLORIDE 0.9% 50 ML IV SCH (16:16)
[2021-12-13] MEDS: LEVOTHYROXINE SODIUM 25MCG TABLET PO SCH (16:16)
[2021-12-13] MEDS: MIDODRINE HCL 5MG TABLET NG SCH (16:17)
[2021-12-13] MEDS: PREGABALIN 75MG CAPSULE PO SCH (20:41)
[2021-12-13] MEDS ORDERED: EPOETIN ALFA-EPBX 10,000 UNIT/ML VIAL SUBCUT SCH (21:00)
[2021-12-13] MEDS ORDERED: EPOETIN ALFA 2,000 UNIT/ML VIAL SUBCUT SCH (21:00)
[2021-12-13] MEDS ORDERED: EPOETIN ALFA-EPBX 4,000 UNIT/ML VIAL SUBCUT SCH (21:00)
[2021-12-13] MEDS: INSULIN GLARGINE UD 100 UNITS/ML SYR SUBCUT SCH (22:06)
[2021-12-14] VITALS (95 sets, daily range): BP systolic 61–190; BP diastolic 32–81
[2021-12-14] MEDS: IPRATROPIUM/ALBUTEROL 0.5-3(2.5)MG/3ML NEB HHN SCH ×6 (00:22→22:29)
[2021-12-14] MEDS: INSULIN LISPRO (HIGH DOSE) 100 UNITS/ML SUBCUT SCH ×4 (00:35→18:00)
[2021-12-14] MEDS: BLOOD SUGAR DIAGNOSTIC STRIP TEST SCH ×4 (00:35→18:19)
[2021-12-14] MEDS: POLYVINYL ALCOHOL OPHTH DROPS 15ML LEFTEYE SCH ×6 (00:36→20:00)
[2021-12-14] MEDS: MORPHINE SULFATE 2 MG/ML CPJ (NOT FOR IM USE) IV PRN (05:13)
[2021-12-14 05:14] LABS: HEMATOCRIT. 30.8 % (42.0-52.0); HEMOGLOBIN. 9.5 g/dL (14.0-18.0); MEAN CORPUSCULAR HEMOGLOBIN 29.8 pg (28.0-32.0); MEAN CORPUSCULAR VOLUME 96.2 fL (80.0-94.0); MEAN PLATELET VOLUME 8.9 fl (7.4-10.4); PLATELET 203 x1000/uL (130-400); RED CELL DISTRIBUTION WIDTH 15.8 % (11.6-14.6)
[2021-12-14] MEDS: LEVOTHYROXINE SODIUM 25MCG TABLET PO SCH (05:53)
[2021-12-14] MEDS: NOREPINEPHRINE 32 MG in DEXT 5% WATER 218 ML IV PRN (07:50)
[2021-12-14] MEDS: PREGABALIN 75MG CAPSULE PO SCH ×2 (08:52→21:52)
[2021-12-14] MEDS: ASPIRIN 81MG TABLET PO SCH (08:52)
[2021-12-14] MEDS: PANTOPRAZOLE SODIUM 40 MG/VIAL IV SCH (08:52)
[2021-12-14] MEDS: ENOXAPARIN 30MG/0.3ML SYR SUBCUT SCH (08:53)
[2021-12-14] MEDS: DOCUSATE SODIUM SUGAR FREE 100MG/10ML UDC NG SCH (08:53)
[2021-12-14] MEDS: MIDODRINE HCL 5MG TABLET NG SCH ×3 (08:53→18:27)
[2021-12-14] MEDS: PREDNISOLONE ACETATE 1% OPHTH DROPS 5ML RIGHTEYE SCH ×2 (09:04→18:26)
[2021-12-14] MEDS ORDERED: NALOXONE HCL 0.4 MG/ML 1ML VIAL IV NR (09:30)
[2021-12-14 11:01] LABS: BG BASE EXCESS -1.7 mmol/L (-2.0-2.0); BG CARBOXYHEMOGLOBIN 0.3 % (0.5-1.5); BG DEOXYHEMOGLOBIN 2.6 % (0.0-5.0); BG FRACTION INSPIRED OXYGEN 40; BG METHEMOGLOBIN 0.1 % (0.0-1.5); BG OXYGEN SATURATION 97.4 % (92.0-98.5); BG PCO2 33.4 mmHg (35.0-45.0); BG PH 7.436 (7.350-7.450); BG PO2 99.4 mmHg (75.0-100.0); BG SAMPLE SITE LEFT RADIAL; BG TOTAL HEMOGLOBIN 10.1 g/dL (12.0-18.0); BG VENT MODE VENT - AC
[2021-12-14 11:10] LABS: NUCLEATED RED BLOOD CELLS 1 /100 WBC; PLATELET ESTIMATE NORMAL
[2021-12-14] MEDS: MEROPENEM 500 MG in SODIUM CHLORIDE 0.9% 50 ML IV SCH (18:27)
[2021-12-14] MEDS ORDERED: VANCOMYCIN 500MG PREMIX 100 ML IV NR (20:00)
[2021-12-14] MEDS: INSULIN GLARGINE UD 100 UNITS/ML SYR SUBCUT SCH (21:53)
[2021-12-15] VITALS (93 sets, daily range): BP systolic 79–148; BP diastolic 36–74
[2021-12-15] MEDS: BLOOD SUGAR DIAGNOSTIC STRIP TEST SCH ×4 (00:15→16:48)
[2021-12-15] MEDS: POLYVINYL ALCOHOL OPHTH DROPS 15ML LEFTEYE SCH ×6 (00:15→20:08)
[2021-12-15] MEDS: IPRATROPIUM/ALBUTEROL 0.5-3(2.5)MG/3ML NEB HHN SCH ×6 (01:12→21:08)
[2021-12-15 05:44] LABS: HEMATOCRIT. 32.4 % (42.0-52.0); HEMOGLOBIN. 10.1 g/dL (14.0-18.0); MEAN CORPUSCULAR HEMOGLOBIN 30.1 pg (28.0-32.0); MEAN CORPUSCULAR VOLUME 96.8 fL (80.0-94.0); MEAN PLATELET VOLUME 8.9 fl (7.4-10.4); PLATELET 242 x1000/uL (130-400); RED BLOOD CELL COUNT 3.35 mill/uL (4.7-6.1); RED CELL DISTRIBUTION WIDTH 16.1 % (11.6-14.6)
[2021-12-15] MEDS: INSULIN LISPRO (HIGH DOSE) 100 UNITS/ML SUBCUT SCH ×4 (06:00→17:16)
[2021-12-15] MEDS: LEVOTHYROXINE SODIUM 25MCG TABLET PO SCH (06:46)
[2021-12-15 07:29] LABS: PLATELET ESTIMATE NORMAL
[2021-12-15 08:00] LABS: BG BASE EXCESS -0.4 mmol/L (-2.0-2.0); BG CARBOXYHEMOGLOBIN 0.3 % (0.5-1.5); BG METHEMOGLOBIN 0.2 % (0.0-1.5); BG OXYHEMOGLOBIN 98.5 % (94.0-97.0); BG PCO2 33.3 mmHg (35.0-45.0); BG PH 7.457 (7.350-7.450); BG PO2 159.6 mmHg (75.0-100.0); BG SAMPLE SITE RIGHT RADIAL; BG TOTAL HEMOGLOBIN 10.5 g/dL (12.0-18.0); BG VENT MODE VENT - AC
[2021-12-15] MEDS ORDERED: SODIUM POLYSTYRENE SULFONATE 15 G/60 ML BOT PO NR (09:00)
[2021-12-15] MEDS: DOCUSATE SODIUM SUGAR FREE 100MG/10ML UDC NG SCH (09:00)
[2021-12-15] MEDS: ENOXAPARIN 30MG/0.3ML SYR SUBCUT SCH (09:09)
[2021-12-15] MEDS: ASPIRIN 81MG TABLET PO SCH (09:09)
[2021-12-15] MEDS: PANTOPRAZOLE SODIUM 40 MG/VIAL IV SCH (09:09)
[2021-12-15] MEDS: PREGABALIN 75MG CAPSULE PO SCH ×2 (09:09→21:14)
[2021-12-15] MEDS: MIDODRINE HCL 5MG TABLET NG SCH ×3 (09:09→16:07)
[2021-12-15] MEDS: PREDNISOLONE ACETATE 1% OPHTH DROPS 5ML RIGHTEYE SCH ×2 (09:11→16:08)
[2021-12-15] MEDS ORDERED: VANCOMYCIN 500MG PREMIX 100 ML IV NR (12:00)
[2021-12-15] MEDS ORDERED: MORPHINE SULFATE 2 MG/ML CPJ (NOT FOR IM USE) IV PRN (13:45)
[2021-12-15] MEDS: COLISTIMETHATE SODIUM 150MG/VIAL INH SCH ×2 (15:57→21:08)
[2021-12-15] MEDS: MEROPENEM 500 MG in SODIUM CHLORIDE 0.9% 50 ML IV SCH (16:07)
[2021-12-15] MEDS: ACETAMINOPHEN 325MG TABLET PO PRN (17:16)
[2021-12-15] MEDS: EPOETIN ALFA-EPBX 10,000 UNIT/ML VIAL SUBCUT SCH (21:14)
[2021-12-15] MEDS: LACTULOSE 20G/30ML UDC NG SCH (21:14)
[2021-12-15 21:30] LABS: HEPATITIS B SURFACE ANTIGEN NEGATIVE
[2021-12-16] VITALS (94 sets, daily range): BP systolic 83–156; BP diastolic 33–68
[2021-12-16] MEDS: INSULIN LISPRO (HIGH DOSE) 100 UNITS/ML SUBCUT SCH ×4 (00:04→16:27)
[2021-12-16] MEDS: POLYVINYL ALCOHOL OPHTH DROPS 15ML LEFTEYE SCH ×6 (00:05→19:58)
[2021-12-16] MEDS: BLOOD SUGAR DIAGNOSTIC STRIP TEST SCH ×4 (00:05→16:11)
[2021-12-16] MEDS: INSULIN GLARGINE UD 100 UNITS/ML SYR SUBCUT SCH ×2 (00:05→22:07)
[2021-12-16] MEDS: IPRATROPIUM/ALBUTEROL 0.5-3(2.5)MG/3ML NEB HHN SCH ×6 (00:41→20:19)
[2021-12-16 05:35] LABS: HEMATOCRIT. 31.7 % (42.0-52.0); HEMOGLOBIN. 9.8 g/dL (14.0-18.0); MEAN CORPUSCULAR HEMOGLOBIN 29.9 pg (28.0-32.0); MEAN CORPUSCULAR VOLUME 96.7 fL (80.0-94.0); MEAN PLATELET VOLUME 8.9 fl (7.4-10.4); PLATELET 262 x1000/uL (130-400); RED BLOOD CELL COUNT 3.27 mill/uL (4.7-6.1); RED CELL DISTRIBUTION WIDTH 16.1 % (11.6-14.6)
[2021-12-16] MEDS: LACTULOSE 20G/30ML UDC NG SCH ×3 (06:49→22:07)
[2021-12-16] MEDS: LEVOTHYROXINE SODIUM 25MCG TABLET PO SCH (06:50)
[2021-12-16] MEDS: DOCUSATE SODIUM SUGAR FREE 100MG/10ML UDC NG SCH (08:04)
[2021-12-16] MEDS: ASPIRIN 81MG TABLET PO SCH (08:04)
[2021-12-16] MEDS: PANTOPRAZOLE SODIUM 40 MG/VIAL IV SCH (08:04)
[2021-12-16] MEDS: PREDNISOLONE ACETATE 1% OPHTH DROPS 5ML RIGHTEYE SCH ×2 (08:04→16:21)
[2021-12-16] MEDS: ENOXAPARIN 30MG/0.3ML SYR SUBCUT SCH (08:05)
[2021-12-16] MEDS: PREGABALIN 75MG CAPSULE PO SCH (08:05)
[2021-12-16] MEDS: MIDODRINE HCL 5MG TABLET NG SCH ×3 (08:05→16:21)
[2021-12-16 08:43] LABS: BG BASE EXCESS -1.4 mmol/L (-2.0-2.0); BG CARBOXYHEMOGLOBIN 0.2 % (0.5-1.5); BG FRACTION INSPIRED OXYGEN 40; BG HCO3 ACT 22.2 mmol/L (22.0-26.0); BG METHEMOGLOBIN 0.2 % (0.0-1.5); BG OXYHEMOGLOBIN 98.6 % (94.0-97.0); BG PCO2 33.4 mmHg (35.0-45.0); BG PH 7.441 (7.350-7.450); BG PO2 168.9 mmHg (75.0-100.0); BG SAMPLE SITE RIGHT RADIAL; BG VENT MODE VENT - AC
[2021-12-16] MEDS: COLISTIMETHATE SODIUM 150MG/VIAL INH SCH ×2 (08:49→20:18)
[2021-12-16 13:25] LABS: PLATELET ESTIMATE NORMAL
[2021-12-16] MEDS ORDERED: VANCOMYCIN 500MG PREMIX 100 ML IV NR (14:00)
[2021-12-16] MEDS: NOREPINEPHRINE 32 MG in DEXT 5% WATER 218 ML IV PRN (16:21)
[2021-12-16] MEDS: MEROPENEM 500 MG in SODIUM CHLORIDE 0.9% 50 ML IV SCH (16:21)
[2021-12-17] VITALS (98 sets, daily range): BP systolic 85–135; BP diastolic 34–53
[2021-12-17] MEDS: BLOOD SUGAR DIAGNOSTIC STRIP TEST SCH ×4 (00:07→16:53)
[2021-12-17] MEDS: POLYVINYL ALCOHOL OPHTH DROPS 15ML LEFTEYE SCH ×6 (00:15→19:58)
[2021-12-17] MEDS: INSULIN LISPRO (HIGH DOSE) 100 UNITS/ML SUBCUT SCH ×4 (00:17→17:00)
[2021-12-17] MEDS: IPRATROPIUM/ALBUTEROL 0.5-3(2.5)MG/3ML NEB HHN SCH ×6 (00:21→20:45)
[2021-12-17 06:05] LABS: EOSINOPHILS % 4.1 % (0.0-5.0); HEMATOCRIT. 28.9 % (42.0-52.0); LYMPHOCYTES % 8.1 % (20.0-50.0); MEAN CORPUSCULAR HEMOGLOBIN 30.2 pg (28.0-32.0); MEAN CORPUSCULAR VOLUME 96.6 fL (80.0-94.0); MEAN PLATELET VOLUME 9.1 fl (7.4-10.4); NEUTROPHILS % 77.8 % (40.0-76.0); PLATELET 254 x1000/uL (130-400); RED BLOOD CELL COUNT 2.99 mill/uL (4.7-6.1); RED CELL DISTRIBUTION WIDTH 15.7 % (11.6-14.6)
[2021-12-17] MEDS: LACTULOSE 20G/30ML UDC NG SCH ×3 (06:18→21:10)
[2021-12-17] MEDS: LEVOTHYROXINE SODIUM 75MCG TABLET PO SCH (06:19)
[2021-12-17] MEDS: DOCUSATE SODIUM SUGAR FREE 100MG/10ML UDC NG SCH (07:55)
[2021-12-17] MEDS: MIDODRINE HCL 5MG TABLET NG SCH ×3 (07:56→16:58)
[2021-12-17] MEDS: ASPIRIN 81MG TABLET PO SCH (07:56)
[2021-12-17] MEDS: ENOXAPARIN 30MG/0.3ML SYR SUBCUT SCH (07:56)
[2021-12-17] MEDS: PANTOPRAZOLE SODIUM 40 MG/VIAL IV SCH (07:57)
[2021-12-17] MEDS: PREDNISOLONE ACETATE 1% OPHTH DROPS 5ML RIGHTEYE SCH ×2 (07:57→16:58)
[2021-12-17 08:01] LABS: BG BASE EXCESS -1.7 mmol/L (-2.0-2.0); BG CARBOXYHEMOGLOBIN 0.2 % (0.5-1.5); BG DEOXYHEMOGLOBIN 2.9 % (0.0-5.0); BG HCO3 ACT 21.9 mmol/L (22.0-26.0); BG METHEMOGLOBIN 0.2 % (0.0-1.5); BG OXYGEN SATURATION 97.1 % (92.0-98.5); BG OXYHEMOGLOBIN 96.7 % (94.0-97.0); BG PCO2 32.9 mmHg (35.0-45.0); BG PH 7.442 (7.350-7.450); BG PO2 94.6 mmHg (75.0-100.0); BG SAMPLE SITE RIGHT BRACHIAL; BG TOTAL HEMOGLOBIN 9.6 g/dL (12.0-18.0); BG VENT MODE VENT - AC
[2021-12-17] MEDS: COLISTIMETHATE SODIUM 150MG/VIAL INH SCH ×2 (08:03→20:25)
[2021-12-17] MEDS ORDERED: SODIUM CHLORIDE 0.9% 10ML VIAL ONE (08:43)
[2021-12-17] MEDS ORDERED: ETOMIDATE 2MG/ML 10ML VIAL IV ONE (08:43)
[2021-12-17] MEDS ORDERED: VECURONIUM BROMIDE 10 MG/VIAL IV ONE (08:43)
[2021-12-17 13:09] LABS: BG BASE EXCESS -0.6 mmol/L (-2.0-2.0); BG DEOXYHEMOGLOBIN 0.9 % (0.0-5.0); BG HCO3 ACT 23.2 mmol/L (22.0-26.0); BG OXYGEN SATURATION 99.1 % (92.0-98.5); BG OXYHEMOGLOBIN 99.1 % (94.0-97.0); BG PCO2 34.9 mmHg (35.0-45.0); BG PO2 183.2 mmHg (75.0-100.0); BG SAMPLE SITE RIGHT BRACHIAL; BG TOTAL HEMOGLOBIN 10.6 g/dL (12.0-18.0); BG VENT MODE VENT - SIMV
[2021-12-17 16:13] LABS: BG BASE EXCESS -4.5 mmol/L (-2.0-2.0); BG CARBOXYHEMOGLOBIN 0.1 % (0.5-1.5); BG DEOXYHEMOGLOBIN 7.7 % (0.0-5.0); BG FRACTION INSPIRED OXYGEN 30; BG HCO3 ACT 22.9 mmol/L (22.0-26.0); BG METHEMOGLOBIN 0.2 % (0.0-1.5); BG OXYGEN SATURATION 92.3 % (92.0-98.5); BG PCO2 53.4 mmHg (35.0-45.0); BG PH 7.251 (7.350-7.450); BG PO2 76.9 mmHg (75.0-100.0); BG SAMPLE SITE LEFT BRACHIAL; BG TOTAL HEMOGLOBIN 10.6 g/dL (12.0-18.0); BG VENT MODE VENT - AC
[2021-12-17] MEDS: MEROPENEM 500 MG in SODIUM CHLORIDE 0.9% 50 ML IV SCH (16:58)
[2021-12-17] MEDS: EPOETIN ALFA-EPBX 10,000 UNIT/ML VIAL SUBCUT SCH (21:08)
[2021-12-17] MEDS: INSULIN GLARGINE UD 100 UNITS/ML SYR SUBCUT SCH (21:09)
[2021-12-17 21:10] LABS: BG CARBOXYHEMOGLOBIN 0.2 % (0.5-1.5); BG DEOXYHEMOGLOBIN 1.7 % (0.0-5.0); BG FRACTION INSPIRED OXYGEN 40; BG HCO3 ACT 21.4 mmol/L (22.0-26.0); BG METHEMOGLOBIN 0.2 % (0.0-1.5); BG OXYGEN SATURATION 98.3 % (92.0-98.5); BG OXYHEMOGLOBIN 97.9 % (94.0-97.0); BG PCO2 35.9 mmHg (35.0-45.0); BG PH 7.394 (7.350-7.450); BG PO2 119.9 mmHg (75.0-100.0); BG SAMPLE SITE RIGHT BRACHIAL; BG VENT MODE VENT - AC
[2021-12-18] VITALS (93 sets, daily range): BP systolic 89–148; BP diastolic 37–87
[2021-12-18] MEDS: BLOOD SUGAR DIAGNOSTIC STRIP TEST SCH ×5 (00:11→23:51)
[2021-12-18] MEDS: POLYVINYL ALCOHOL OPHTH DROPS 15ML LEFTEYE SCH ×7 (00:11→23:53)
[2021-12-18] MEDS: INSULIN LISPRO (HIGH DOSE) 100 UNITS/ML SUBCUT SCH ×5 (00:12→23:52)
[2021-12-18] MEDS: IPRATROPIUM/ALBUTEROL 0.5-3(2.5)MG/3ML NEB HHN SCH ×6 (00:26→20:27)
[2021-12-18 05:27] LABS: HEMATOCRIT. 30.5 % (42.0-52.0); HEMOGLOBIN. 9.5 g/dL (14.0-18.0); MEAN CORPUSCULAR HEMOGLOBIN 29.9 pg (28.0-32.0); MEAN PLATELET VOLUME 8.7 fl (7.4-10.4); PLATELET 272 x1000/uL (130-400); RED BLOOD CELL COUNT 3.17 mill/uL (4.7-6.1); RED CELL DISTRIBUTION WIDTH 15.7 % (11.6-14.6)
[2021-12-18] MEDS: LACTULOSE 20G/30ML UDC NG SCH ×3 (06:22→21:38)
[2021-12-18] MEDS: LEVOTHYROXINE SODIUM 75MCG TABLET PO SCH (06:23)
[2021-12-18 07:36] LABS: PLATELET ESTIMATE NORMAL
[2021-12-18] MEDS: COLISTIMETHATE SODIUM 150MG/VIAL INH SCH ×3 (07:56→20:42)
[2021-12-18] MEDS: PANTOPRAZOLE SODIUM 40 MG/VIAL IV SCH (08:50)
[2021-12-18] MEDS: ASPIRIN 81MG TABLET PO SCH (08:50)
[2021-12-18] MEDS: MIDODRINE HCL 5MG TABLET NG SCH ×3 (08:50→17:54)
[2021-12-18] MEDS: PREDNISOLONE ACETATE 1% OPHTH DROPS 5ML RIGHTEYE SCH ×2 (08:52→17:00)
[2021-12-18] MEDS: ENOXAPARIN 30MG/0.3ML SYR SUBCUT SCH (08:53)
[2021-12-18] MEDS: DOCUSATE SODIUM SUGAR FREE 100MG/10ML UDC NG SCH (08:54)
[2021-12-18] MEDS: MEROPENEM 500 MG in SODIUM CHLORIDE 0.9% 50 ML IV SCH (15:43)
[2021-12-18] MEDS: ACETAMINOPHEN 325MG TABLET PO PRN (17:54)
[2021-12-18] MEDS: INSULIN GLARGINE UD 100 UNITS/ML SYR SUBCUT SCH (21:39)
[2021-12-18] MEDS: GENTAMICIN SULFATE 0.1% TOP SCH (22:54)
[2021-12-18] MEDS: NOREPINEPHRINE 32 MG in DEXT 5% WATER 218 ML IV PRN (22:59)
[2021-12-19] VITALS (95 sets, daily range): BP systolic 73–154; BP diastolic 34–74
[2021-12-19] MEDS: IPRATROPIUM/ALBUTEROL 0.5-3(2.5)MG/3ML NEB HHN SCH ×6 (00:27→21:04)
[2021-12-19 02:12] LABS: HEPATITIS B SURFACE ANTIGEN NEGATIVE
[2021-12-19] MEDS: POLYVINYL ALCOHOL OPHTH DROPS 15ML LEFTEYE SCH ×5 (05:05→20:32)
[2021-12-19] MEDS: ACETAMINOPHEN 325MG TABLET PO PRN ×2 (05:39→20:32)
[2021-12-19] MEDS: LACTULOSE 20G/30ML UDC NG SCH ×3 (05:39→22:24)
[2021-12-19] MEDS: LEVOTHYROXINE SODIUM 75MCG TABLET PO SCH (05:39)
[2021-12-19] MEDS: BLOOD SUGAR DIAGNOSTIC STRIP TEST SCH ×3 (05:51→17:23)
[2021-12-19] MEDS: INSULIN LISPRO (HIGH DOSE) 100 UNITS/ML SUBCUT SCH ×3 (05:51→17:27)
[2021-12-19 05:56] LABS: HEMATOCRIT. 27.6 % (42.0-52.0); HEMOGLOBIN. 8.8 g/dL (14.0-18.0); MEAN CORPUSCULAR HEMOGLOBIN 30.7 pg (28.0-32.0); MEAN PLATELET VOLUME 8.9 fl (7.4-10.4); PLATELET 234 x1000/uL (130-400); RED BLOOD CELL COUNT 2.88 mill/uL (4.7-6.1)
[2021-12-19 06:25] LABS: CHLORIDE 99 mEq/L (98-107)
[2021-12-19] MEDS: COLISTIMETHATE SODIUM 150MG/VIAL INH SCH ×2 (08:01→21:04)
[2021-12-19] MEDS: DOCUSATE SODIUM SUGAR FREE 100MG/10ML UDC NG SCH (08:38)
[2021-12-19] MEDS: ENOXAPARIN 30MG/0.3ML SYR SUBCUT SCH (08:38)
[2021-12-19] MEDS: PANTOPRAZOLE SODIUM 40 MG/VIAL IV SCH (08:38)
[2021-12-19] MEDS: ASPIRIN 81MG TABLET PO SCH (08:38)
[2021-12-19] MEDS: GENTAMICIN SULFATE 0.1% TOP SCH ×2 (08:39→20:35)
[2021-12-19] MEDS: PREDNISOLONE ACETATE 1% OPHTH DROPS 5ML RIGHTEYE SCH ×2 (08:39→17:26)
[2021-12-19] MEDS: MIDODRINE HCL 5MG TABLET NG SCH ×3 (08:39→17:26)
[2021-12-19 09:56] LABS: BG BASE EXCESS -1.1 mmol/L (-2.0-2.0); BG DEOXYHEMOGLOBIN 0.8 % (0.0-5.0); BG FRACTION INSPIRED OXYGEN 40; BG HCO3 ACT 23.2 mmol/L (22.0-26.0); BG METHEMOGLOBIN 0.3 % (0.0-1.5); BG OXYGEN SATURATION 99.2 % (92.0-98.5); BG OXYHEMOGLOBIN 98.9 % (94.0-97.0); BG PCO2 37.1 mmHg (35.0-45.0); BG PH 7.414 (7.350-7.450); BG PO2 160.1 mmHg (75.0-100.0); BG SAMPLE SITE RIGHT BRACHIAL; BG TOTAL HEMOGLOBIN 9.7 g/dL (12.0-18.0); BG VENT MODE VENT - AC
[2021-12-19 10:38] LABS: PLATELET ESTIMATE NORMAL
[2021-12-19] MEDS ORDERED: NALOXONE HCL 0.4MG/ML VIAL IV PRN (10:45)
[2021-12-19] MEDS: HYDROMORPHONE HCL/PF 2MG/ML CPJ IV PRN (13:09)
[2021-12-19] MEDS ORDERED: VANCOMYCIN 1GM PMX (XELLIA) 200 ML IV SCH (14:00)
[2021-12-19] MEDS: MEROPENEM 500 MG in SODIUM CHLORIDE 0.9% 50 ML IV SCH (17:25)
[2021-12-19] MEDS: INSULIN GLARGINE UD 100 UNITS/ML SYR SUBCUT SCH (22:25)
[2021-12-20] VITALS (92 sets, daily range): BP systolic 84–208; BP diastolic 32–78
[2021-12-20] MEDS: POLYVINYL ALCOHOL OPHTH DROPS 15ML LEFTEYE SCH ×6 (00:10→20:06)
[2021-12-20] MEDS: BLOOD SUGAR DIAGNOSTIC STRIP TEST SCH ×4 (00:10→16:51)
[2021-12-20] MEDS: INSULIN LISPRO (HIGH DOSE) 100 UNITS/ML SUBCUT SCH ×4 (00:11→16:51)
[2021-12-20] MEDS: IPRATROPIUM/ALBUTEROL 0.5-3(2.5)MG/3ML NEB HHN SCH ×6 (00:32→20:13)
[2021-12-20 05:33] LABS: INR 1.1; PROTHROMBIN TIME 11.7 sec (9.6-11.0)
[2021-12-20] MEDS: LEVOTHYROXINE SODIUM 75MCG TABLET PO SCH (05:55)
[2021-12-20] MEDS: LACTULOSE 20G/30ML UDC NG SCH ×3 (05:55→22:36)
[2021-12-20 06:11] LABS: HEMATOCRIT. 28.1 % (42.0-52.0); HEMOGLOBIN. 8.8 g/dL (14.0-18.0); MEAN CORPUSCULAR HEMOGLOBIN 30.1 pg (28.0-32.0); MEAN CORPUSCULAR VOLUME 96.1 fL (80.0-94.0); MEAN PLATELET VOLUME 9.4 fl (7.4-10.4); PLATELET 169 x1000/uL (130-400); RED BLOOD CELL COUNT 2.93 mill/uL (4.7-6.1); RED CELL DISTRIBUTION WIDTH 16.2 % (11.6-14.6)
[2021-12-20] MEDS: ASPIRIN 81MG TABLET PO SCH (07:29)
[2021-12-20] MEDS: MIDODRINE HCL 5MG TABLET NG SCH ×3 (07:29→20:43)
[2021-12-20] MEDS: ENOXAPARIN 30MG/0.3ML SYR SUBCUT SCH (07:30)
[2021-12-20] MEDS: DOCUSATE SODIUM SUGAR FREE 100MG/10ML UDC NG SCH (07:30)
[2021-12-20] MEDS: PANTOPRAZOLE SODIUM 40 MG/VIAL IV SCH (07:55)
[2021-12-20] MEDS: NYSTATIN 100,000 UNITS/GM CREAM 15GM TOP SCH ×2 (07:56→20:47)
[2021-12-20] MEDS: PREDNISOLONE ACETATE 1% OPHTH DROPS 5ML RIGHTEYE SCH ×2 (07:56→17:05)
[2021-12-20] MEDS: GENTAMICIN SULFATE 0.1% TOP SCH ×2 (07:56→20:47)
[2021-12-20] MEDS: COLISTIMETHATE SODIUM 150MG/VIAL INH SCH (08:22)
[2021-12-20 12:40] LABS: PLATELET ESTIMATE NORMAL
[2021-12-20] MEDS ORDERED: LIDOCAINE HCL/EPINEPHRINE 1%-EPI 1:100,000 30 ML VIAL INFIL ONE (13:23)
[2021-12-20] MEDS ORDERED: SKIN ADHESIVE 0.7 GM EA TOP ONE (15:37)
[2021-12-20] MEDS: MEROPENEM 500 MG in SODIUM CHLORIDE 0.9% 50 ML IV SCH (17:05)
[2021-12-20] MEDS: EPOETIN ALFA-EPBX 10,000 UNIT/ML VIAL SUBCUT SCH (20:43)
[2021-12-20] MEDS: INSULIN GLARGINE UD 100 UNITS/ML SYR SUBCUT SCH (21:29)
[2021-12-21] VITALS (82 sets, daily range): BP systolic 88–145; BP diastolic 32–57
[2021-12-21] MEDS: COLISTIMETHATE SODIUM 150MG/VIAL INH SCH ×2 (00:12→08:11)
[2021-12-21] MEDS: IPRATROPIUM/ALBUTEROL 0.5-3(2.5)MG/3ML NEB HHN SCH ×6 (00:25→20:32)
[2021-12-21] MEDS: POLYVINYL ALCOHOL OPHTH DROPS 15ML LEFTEYE SCH ×7 (00:33→23:30)
[2021-12-21] MEDS: BLOOD SUGAR DIAGNOSTIC STRIP TEST SCH ×5 (00:33→23:25)
[2021-12-21] MEDS: ACETAMINOPHEN 325MG TABLET PO PRN (01:51)
[2021-12-21] MEDS: INSULIN LISPRO (HIGH DOSE) 100 UNITS/ML SUBCUT SCH ×5 (06:00→23:31)
[2021-12-21] MEDS: LACTULOSE 20G/30ML UDC NG SCH ×3 (06:24→22:06)
[2021-12-21] MEDS: LEVOTHYROXINE SODIUM 75MCG TABLET PO SCH (06:25)
[2021-12-21] MEDS: MIDODRINE HCL 5MG TABLET NG SCH ×3 (06:25→22:06)
[2021-12-21] MEDS: PANTOPRAZOLE SODIUM 40 MG/VIAL IV SCH (08:00)
[2021-12-21] MEDS: NYSTATIN 100,000 UNITS/GM CREAM 15GM TOP SCH ×2 (08:01→22:02)
[2021-12-21] MEDS: PREDNISOLONE ACETATE 1% OPHTH DROPS 5ML RIGHTEYE SCH ×2 (08:01→16:39)
[2021-12-21] MEDS: ASPIRIN 81MG TABLET PO SCH (08:01)
[2021-12-21] MEDS: ENOXAPARIN 30MG/0.3ML SYR SUBCUT SCH (08:01)
[2021-12-21] MEDS: GENTAMICIN SULFATE 0.1% TOP SCH ×2 (08:02→22:02)
[2021-12-21] MEDS: DOCUSATE SODIUM SUGAR FREE 100MG/10ML UDC NG SCH (08:02)
[2021-12-21 08:36] LABS: HEMATOCRIT. 26.5 % (42.0-52.0); HEMOGLOBIN. 8.3 g/dL (14.0-18.0); MEAN CORPUSCULAR HEMOGLOBIN 29.9 pg (28.0-32.0); MEAN CORPUSCULAR VOLUME 95.8 fL (80.0-94.0); PLATELET 226 x1000/uL (130-400); RED BLOOD CELL COUNT 2.76 mill/uL (4.7-6.1)
[2021-12-21 09:32] LABS: PLATELET ESTIMATE NORMAL
[2021-12-21] MEDS: MEROPENEM 500 MG in SODIUM CHLORIDE 0.9% 50 ML IV SCH (16:39)
[2021-12-21] MEDS: INSULIN GLARGINE UD 100 UNITS/ML SYR SUBCUT SCH (22:02)
[2021-12-22] VITALS (13 sets, daily range): BP systolic 99–131; BP diastolic 41–54
[2021-12-22] MEDS: IPRATROPIUM/ALBUTEROL 0.5-3(2.5)MG/3ML NEB HHN SCH ×6 (00:42→20:33)
[2021-12-22] MEDS: POLYVINYL ALCOHOL OPHTH DROPS 15ML LEFTEYE SCH ×6 (03:51→23:33)
[2021-12-22] MEDS: BLOOD SUGAR DIAGNOSTIC STRIP TEST SCH ×4 (05:24→23:34)
[2021-12-22] MEDS: INSULIN LISPRO (HIGH DOSE) 100 UNITS/ML SUBCUT SCH ×4 (05:24→23:33)
[2021-12-22] MEDS: MIDODRINE HCL 5MG TABLET NG SCH ×3 (05:25→22:06)
[2021-12-22] MEDS: LACTULOSE 20G/30ML UDC NG SCH ×3 (05:25→22:07)
[2021-12-22 06:18] LABS: BASOPHILS % 1.3 % (0.0-2.0); EOSINOPHILS % 9.9 % (0.0-5.0); HEMATOCRIT. 27.6 % (42.0-52.0); HEMOGLOBIN. 8.6 g/dL (14.0-18.0); LYMPHOCYTES % 8.6 % (20.0-50.0); MEAN CORPUSCULAR HEMOGLOBIN 29.7 pg (28.0-32.0); MEAN PLATELET VOLUME 8.7 fl (7.4-10.4); MONOCYTES % 7.7 % (2.0-8.0); NEUTROPHILS % 72.5 % (40.0-76.0); PLATELET 246 x1000/uL (130-400)
[2021-12-22 06:52] LABS: PHOSPHORUS 5.2 mg/dL (2.5-4.9)
[2021-12-22 08:36] LABS: BG BASE EXCESS -0.6 mmol/L (-2.0-2.0); BG CARBOXYHEMOGLOBIN 0.2 % (0.5-1.5); BG FRACTION INSPIRED OXYGEN 40; BG HCO3 ACT 22.9 mmol/L (22.0-26.0); BG METHEMOGLOBIN 0.2 % (0.0-1.5); BG OXYHEMOGLOBIN 98.6 % (94.0-97.0); BG PCO2 32.9 mmHg (35.0-45.0); BG PO2 149.7 mmHg (75.0-100.0); BG SAMPLE SITE RIGHT RADIAL; BG VENT MODE VENT - SIMV
[2021-12-22] MEDS: ENOXAPARIN 30MG/0.3ML SYR SUBCUT SCH (08:56)
[2021-12-22] MEDS: PANTOPRAZOLE SODIUM 40 MG/VIAL IV SCH (08:56)
[2021-12-22] MEDS: ASPIRIN 81MG TABLET PO SCH (08:56)
[2021-12-22] MEDS: DOCUSATE SODIUM SUGAR FREE 100MG/10ML UDC NG SCH (08:56)
[2021-12-22] MEDS: LEVOTHYROXINE SODIUM 75MCG TABLET PO SCH (08:56)
[2021-12-22] MEDS: PREDNISOLONE ACETATE 1% OPHTH DROPS 5ML RIGHTEYE SCH ×2 (08:57→16:56)
[2021-12-22] MEDS: GENTAMICIN SULFATE 0.1% TOP SCH ×2 (08:58→22:06)
[2021-12-22] MEDS: NYSTATIN 100,000 UNITS/GM CREAM 15GM TOP SCH ×2 (08:58→22:06)
[2021-12-22] MEDS: COLISTIMETHATE SODIUM 150MG/VIAL INH SCH ×2 (09:24→20:40)
[2021-12-22 18:52] LABS: HEPATITIS B SURFACE ANTIGEN NEGATIVE
[2021-12-22] MEDS: INSULIN GLARGINE UD 100 UNITS/ML SYR SUBCUT SCH (22:05)
[2021-12-23] VITALS (13 sets, daily range): BP systolic 101–139; BP diastolic 42–53
[2021-12-23] MEDS: IPRATROPIUM/ALBUTEROL 0.5-3(2.5)MG/3ML NEB HHN SCH ×7 (00:44→23:28)
[2021-12-23] MEDS: POLYVINYL ALCOHOL OPHTH DROPS 15ML LEFTEYE SCH ×7 (04:03→23:40)
[2021-12-23] MEDS: LACTULOSE 20G/30ML UDC NG SCH ×3 (05:22→21:07)
[2021-12-23] MEDS: MIDODRINE HCL 5MG TABLET NG SCH ×3 (05:23→21:07)
[2021-12-23] MEDS: BLOOD SUGAR DIAGNOSTIC STRIP TEST SCH ×4 (05:23→23:40)
[2021-12-23] MEDS: INSULIN LISPRO (HIGH DOSE) 100 UNITS/ML SUBCUT SCH ×4 (05:23→23:40)
[2021-12-23 06:26] LABS: BASOPHILS % 1.1 % (0.0-2.0); EOSINOPHILS % 9.7 % (0.0-5.0); HEMATOCRIT. 26.3 % (42.0-52.0); HEMOGLOBIN. 8.2 g/dL (14.0-18.0); LYMPHOCYTES % 10.2 % (20.0-50.0); MEAN CORPUSCULAR HEMOGLOBIN 29.7 pg (28.0-32.0); MEAN CORPUSCULAR VOLUME 95.1 fL (80.0-94.0); MEAN PLATELET VOLUME 8.6 fl (7.4-10.4); MONOCYTES % 7.9 % (2.0-8.0); NEUTROPHILS % 71.1 % (40.0-76.0); PLATELET 249 x1000/uL (130-400); RED BLOOD CELL COUNT 2.76 mill/uL (4.7-6.1); RED CELL DISTRIBUTION WIDTH 16.2 % (11.6-14.6)
[2021-12-23] MEDS: LEVOTHYROXINE SODIUM 75MCG TABLET PO SCH ×2 (07:30→10:30)
[2021-12-23] MEDS: COLISTIMETHATE SODIUM 150MG/VIAL INH SCH ×2 (08:45→23:28)
[2021-12-23] MEDS: PANTOPRAZOLE SODIUM 40 MG/VIAL IV SCH (09:21)
[2021-12-23] MEDS: DOCUSATE SODIUM SUGAR FREE 100MG/10ML UDC NG SCH (09:21)
[2021-12-23] MEDS: ENOXAPARIN 30MG/0.3ML SYR SUBCUT SCH (09:22)
[2021-12-23] MEDS: ASPIRIN 81MG TABLET PO SCH (09:22)
[2021-12-23] MEDS: NYSTATIN 100,000 UNITS/GM CREAM 15GM TOP SCH ×2 (09:23→20:59)
[2021-12-23] MEDS: GENTAMICIN SULFATE 0.1% TOP SCH ×2 (09:23→20:58)
[2021-12-23] MEDS: PREDNISOLONE ACETATE 1% OPHTH DROPS 5ML RIGHTEYE SCH ×2 (09:23→17:34)
[2021-12-23] MEDS: ACETAMINOPHEN 325MG TABLET PO PRN (17:34)
[2021-12-23] MEDS ORDERED: EPOETIN ALFA-EPBX 10,000 UNIT/ML VIAL SUBCUT SCH (21:00)
[2021-12-23] MEDS: INSULIN GLARGINE UD 100 UNITS/ML SYR SUBCUT SCH (21:13)
[2021-12-23] MEDS: EPOETIN ALFA 10000UNITS/ML VIAL SUBCUT SCH (21:18)
[2021-12-23] MEDS: EPOETIN ALFA 4000UNITS/ML VIAL SUBCUT SCH (21:18)
[2021-12-24] VITALS (13 sets, daily range): BP systolic 106–125; BP diastolic 43–55
[2021-12-24] MEDS: ACETAMINOPHEN 325MG TABLET PO PRN ×3 (03:40→21:06)
[2021-12-24] MEDS: POLYVINYL ALCOHOL OPHTH DROPS 15ML LEFTEYE SCH ×6 (03:41→23:15)
[2021-12-24] MEDS: IPRATROPIUM/ALBUTEROL 0.5-3(2.5)MG/3ML NEB HHN SCH ×5 (04:28→19:49)
[2021-12-24] MEDS: INSULIN LISPRO (HIGH DOSE) 100 UNITS/ML SUBCUT SCH ×4 (06:00→23:12)
[2021-12-24] MEDS: MIDODRINE HCL 5MG TABLET NG SCH ×3 (06:37→21:02)
[2021-12-24] MEDS: BLOOD SUGAR DIAGNOSTIC STRIP TEST SCH ×4 (06:37→23:12)
[2021-12-24] MEDS: LEVOTHYROXINE SODIUM 75MCG TABLET PO SCH (06:37)
[2021-12-24] MEDS: LACTULOSE 20G/30ML UDC NG SCH ×3 (06:38→21:01)
[2021-12-24] MEDS: HYDROMORPHONE HCL/PF 2MG/ML CPJ IV PRN (06:46)
[2021-12-24] MEDS: COLISTIMETHATE SODIUM 150MG/VIAL INH SCH (08:50)
[2021-12-24] MEDS: PANTOPRAZOLE SODIUM 40 MG/VIAL IV SCH (09:21)
[2021-12-24] MEDS: ASPIRIN 81MG TABLET PO SCH (09:21)
[2021-12-24] MEDS: ENOXAPARIN 30MG/0.3ML SYR SUBCUT SCH (09:21)
[2021-12-24] MEDS: PREDNISOLONE ACETATE 1% OPHTH DROPS 5ML RIGHTEYE SCH ×2 (09:22→17:46)
[2021-12-24] MEDS: NYSTATIN 100,000 UNITS/GM CREAM 15GM TOP SCH ×2 (09:23→21:00)
[2021-12-24] MEDS: DOCUSATE SODIUM SUGAR FREE 100MG/10ML UDC NG SCH (12:15)
[2021-12-24] MEDS: GENTAMICIN SULFATE 0.1% TOP SCH ×2 (12:15→21:00)
[2021-12-24] MEDS: INSULIN GLARGINE UD 100 UNITS/ML SYR SUBCUT SCH (21:05)
[2021-12-25] VITALS (11 sets, daily range): BP systolic 114–129; BP diastolic 45–59
[2021-12-25] MEDS: IPRATROPIUM/ALBUTEROL 0.5-3(2.5)MG/3ML NEB HHN SCH ×6 (00:05→20:09)
[2021-12-25] MEDS: POLYVINYL ALCOHOL OPHTH DROPS 15ML LEFTEYE SCH ×5 (03:55→20:00)
[2021-12-25] MEDS: LACTULOSE 20G/30ML UDC NG SCH ×3 (06:02→22:02)
[2021-12-25] MEDS: MIDODRINE HCL 5MG TABLET NG SCH ×3 (06:02→22:02)
[2021-12-25] MEDS: INSULIN LISPRO (HIGH DOSE) 100 UNITS/ML SUBCUT SCH ×3 (06:03→18:39)
[2021-12-25] MEDS: BLOOD SUGAR DIAGNOSTIC STRIP TEST SCH ×3 (06:03→18:32)
[2021-12-25] MEDS: LEVOTHYROXINE SODIUM 75MCG TABLET PO SCH (07:16)
[2021-12-25] MEDS: ASPIRIN 81MG TABLET PO SCH (08:33)
[2021-12-25] MEDS: ENOXAPARIN 30MG/0.3ML SYR SUBCUT SCH (08:33)
[2021-12-25] MEDS: DOCUSATE SODIUM SUGAR FREE 100MG/10ML UDC NG SCH (08:33)
[2021-12-25] MEDS: PANTOPRAZOLE SODIUM 40 MG/VIAL IV SCH (08:33)
[2021-12-25] MEDS: PREDNISOLONE ACETATE 1% OPHTH DROPS 5ML RIGHTEYE SCH ×2 (08:34→18:39)
[2021-12-25] MEDS: NYSTATIN 100,000 UNITS/GM CREAM 15GM TOP SCH ×2 (08:34→22:03)
[2021-12-25] MEDS: GENTAMICIN SULFATE 0.1% TOP SCH ×2 (08:34→18:08)
[2021-12-25 09:50] LABS: BASOPHILS % 1.2 % (0.0-2.0); EOSINOPHILS % 7.8 % (0.0-5.0); HEMATOCRIT. 27.9 % (42.0-52.0); HEMOGLOBIN. 8.8 g/dL (14.0-18.0); LYMPHOCYTES % 14.1 % (20.0-50.0); MEAN CORPUSCULAR HEMOGLOBIN 29.9 pg (28.0-32.0); MEAN PLATELET VOLUME 8.3 fl (7.4-10.4); MONOCYTES % 7.5 % (2.0-8.0); NEUTROPHILS % 69.4 % (40.0-76.0); PLATELET 237 x1000/uL (130-400); RED BLOOD CELL COUNT 2.94 mill/uL (4.7-6.1); RED CELL DISTRIBUTION WIDTH 15.7 % (11.6-14.6)
[2021-12-25] MEDS: ACETAMINOPHEN 325MG TABLET PO PRN (20:45)
[2021-12-25] MEDS: INSULIN GLARGINE UD 100 UNITS/ML SYR SUBCUT SCH (22:03)
[2021-12-26] VITALS (12 sets, daily range): BP systolic 101–130; BP diastolic 42–55
[2021-12-26] MEDS: BLOOD SUGAR DIAGNOSTIC STRIP TEST SCH ×5 (00:02→23:09)
[2021-12-26 00:06] LABS: HEPATITIS B SURFACE ANTIGEN NEGATIVE
[2021-12-26] MEDS: IPRATROPIUM/ALBUTEROL 0.5-3(2.5)MG/3ML NEB HHN SCH ×6 (00:13→21:27)
[2021-12-26] MEDS: INSULIN LISPRO (HIGH DOSE) 100 UNITS/ML SUBCUT SCH ×5 (00:14→23:08)
[2021-12-26] MEDS: POLYVINYL ALCOHOL OPHTH DROPS 15ML LEFTEYE SCH ×7 (00:15→23:09)
[2021-12-26] MEDS: LACTULOSE 20G/30ML UDC NG SCH ×3 (05:52→21:28)
[2021-12-26] MEDS: MIDODRINE HCL 5MG TABLET NG SCH ×3 (05:53→17:21)
[2021-12-26] MEDS: LEVOTHYROXINE SODIUM 75MCG TABLET PO SCH (07:30)
[2021-12-26] MEDS: ENOXAPARIN 30MG/0.3ML SYR SUBCUT SCH (09:00)
[2021-12-26] MEDS: PANTOPRAZOLE SODIUM 40 MG/VIAL IV SCH (09:00)
[2021-12-26] MEDS: ASPIRIN 81MG TABLET PO SCH (09:00)
[2021-12-26] MEDS ORDERED: ALTEPLASE 2MG/VIAL ITC NR (09:00)
[2021-12-26] MEDS: DOCUSATE SODIUM SUGAR FREE 100MG/10ML UDC NG SCH (09:00)
[2021-12-26] MEDS: NYSTATIN 100,000 UNITS/GM CREAM 15GM TOP SCH ×2 (13:21→20:37)
[2021-12-26] MEDS: GENTAMICIN SULFATE 0.1% TOP SCH ×2 (13:21→20:37)
[2021-12-26] MEDS: PREDNISOLONE ACETATE 1% OPHTH DROPS 5ML RIGHTEYE SCH ×2 (13:21→17:20)
[2021-12-26] MEDS: ACETAMINOPHEN 325MG TABLET PO PRN ×2 (14:45→20:36)
[2021-12-26] MEDS: EPOETIN ALFA 10000UNITS/ML VIAL SUBCUT SCH (21:29)
[2021-12-26] MEDS: EPOETIN ALFA 4000UNITS/ML VIAL SUBCUT SCH (21:30)
[2021-12-26] MEDS: INSULIN GLARGINE UD 100 UNITS/ML SYR SUBCUT SCH (23:08)
[2021-12-27] VITALS (12 sets, daily range): BP systolic 102–138; BP diastolic 44–63
[2021-12-27] MEDS: MIDODRINE HCL 5MG TABLET NG SCH ×5 (00:43→23:47)
[2021-12-27] MEDS: IPRATROPIUM/ALBUTEROL 0.5-3(2.5)MG/3ML NEB HHN SCH ×6 (01:13→21:08)
[2021-12-27] MEDS: POLYVINYL ALCOHOL OPHTH DROPS 15ML LEFTEYE SCH ×6 (04:38→23:51)
[2021-12-27] MEDS: INSULIN LISPRO (HIGH DOSE) 100 UNITS/ML SUBCUT SCH ×2 (05:46→12:00)
[2021-12-27] MEDS: BLOOD SUGAR DIAGNOSTIC STRIP TEST SCH ×3 (05:47→23:33)
[2021-12-27] MEDS: LACTULOSE 20G/30ML UDC NG SCH ×3 (05:47→22:15)
[2021-12-27 06:08] LABS: BASOPHILS % 0.9 % (0.0-2.0); EOSINOPHILS % 8.7 % (0.0-5.0); HEMATOCRIT. 25.4 % (42.0-52.0); LYMPHOCYTES % 16.4 % (20.0-50.0); MEAN CORPUSCULAR HEMOGLOBIN 30.1 pg (28.0-32.0); MEAN CORPUSCULAR VOLUME 95.2 fL (80.0-94.0); MEAN PLATELET VOLUME 7.9 fl (7.4-10.4); MONOCYTES % 8.7 % (2.0-8.0); NEUTROPHILS % 65.3 % (40.0-76.0); PLATELET 249 x1000/uL (130-400); RED BLOOD CELL COUNT 2.66 mill/uL (4.7-6.1)
[2021-12-27] MEDS ORDERED: POTASSIUM CHLORIDE 20MEQ/PACKET PO NR (08:00)
[2021-12-27] MEDS: LEVOTHYROXINE SODIUM 75MCG TABLET PO SCH (08:27)
[2021-12-27] MEDS: DOCUSATE SODIUM SUGAR FREE 100MG/10ML UDC NG SCH (08:27)
[2021-12-27] MEDS: PANTOPRAZOLE SODIUM 40 MG/VIAL IV SCH (08:27)
[2021-12-27] MEDS: ENOXAPARIN 30MG/0.3ML SYR SUBCUT SCH (08:28)
[2021-12-27] MEDS: ASPIRIN 81MG TABLET PO SCH (08:28)
[2021-12-27] MEDS: NYSTATIN 100,000 UNITS/GM CREAM 15GM TOP SCH ×2 (08:29→20:49)
[2021-12-27] MEDS: PREDNISOLONE ACETATE 1% OPHTH DROPS 5ML RIGHTEYE SCH ×2 (08:29→17:00)
[2021-12-27] MEDS: GENTAMICIN SULFATE 0.1% TOP SCH ×2 (08:30→20:49)
[2021-12-27] MEDS ORDERED: VANCOMYCIN 1G PREMIX 200 ML IV NR (20:00)
[2021-12-27] MEDS ORDERED: DEXTROSE 50% WATER 50ML SYRINGE IV PRN (20:30)
[2021-12-27] MEDS: MEROPENEM 500 MG in SODIUM CHLORIDE 0.9% 50 ML IV SCH (20:47)
[2021-12-27] MEDS: INSULIN GLARGINE UD 100 UNITS/ML SYR SUBCUT SCH (22:16)
[2021-12-27] MEDS: INSULIN LISPRO 100 UNITS/ML SUBCUT SCH (23:52)
[2021-12-28] VITALS (12 sets, daily range): BP systolic 120–140; BP diastolic 47–66
[2021-12-28] MEDS ORDERED: IPRATROPIUM/ALBUTEROL 0.5-3(2.5)MG/3ML NEB ONE (01:04)
[2021-12-28] MEDS: IPRATROPIUM/ALBUTEROL 0.5-3(2.5)MG/3ML NEB HHN SCH ×6 (01:08→20:46)
[2021-12-28] MEDS: ACETYLCYSTEINE 100MG/ML 10% VIAL 4ML INH SCH ×3 (01:08→16:16)
[2021-12-28] MEDS: POLYVINYL ALCOHOL OPHTH DROPS 15ML LEFTEYE SCH ×5 (04:00→20:52)
[2021-12-28 05:50] LABS: HEMATOCRIT. 25.8 % (42.0-52.0); MEAN CORPUSCULAR HEMOGLOBIN 28.8 pg (28.0-32.0); MEAN CORPUSCULAR VOLUME 93.1 fL (80.0-94.0); MEAN PLATELET VOLUME 7.5 fl (7.4-10.4); PLATELET 249 x1000/uL (130-400); RED BLOOD CELL COUNT 2.78 mill/uL (4.7-6.1); RED CELL DISTRIBUTION WIDTH 15.6 % (11.6-14.6)
[2021-12-28] MEDS: BLOOD SUGAR DIAGNOSTIC STRIP TEST SCH ×3 (05:50→17:02)
[2021-12-28] MEDS: MIDODRINE HCL 5MG TABLET NG SCH ×3 (06:00→21:00)
[2021-12-28] MEDS: LACTULOSE 20G/30ML UDC NG SCH ×3 (06:01→21:00)
[2021-12-28] MEDS: INSULIN LISPRO 100 UNITS/ML SUBCUT SCH ×3 (06:03→17:26)
[2021-12-28] MEDS: LEVOTHYROXINE SODIUM 75MCG TABLET PO SCH (06:06)
[2021-12-28] MEDS: GENTAMICIN SULFATE 0.1% TOP SCH ×2 (08:01→21:05)
[2021-12-28] MEDS: PREDNISOLONE ACETATE 1% OPHTH DROPS 5ML RIGHTEYE SCH ×2 (08:01→17:20)
[2021-12-28] MEDS: PANTOPRAZOLE SODIUM 40 MG/VIAL IV SCH (08:01)
[2021-12-28] MEDS: ASPIRIN 81MG TABLET PO SCH (08:01)
[2021-12-28] MEDS: NYSTATIN 100,000 UNITS/GM CREAM 15GM TOP SCH ×2 (08:01→20:52)
[2021-12-28] MEDS: DOCUSATE SODIUM SUGAR FREE 100MG/10ML UDC NG SCH (08:01)
[2021-12-28] MEDS: ENOXAPARIN 30MG/0.3ML SYR SUBCUT SCH (08:02)
[2021-12-28] MEDS ORDERED: POTASSIUM CHLORIDE 20MEQ/PACKET PO NR (09:30)
[2021-12-28] MEDS ORDERED: LIDOCAINE HCL/EPINEPHRINE 1%-EPI 1:100,000 20 ML VIAL INFIL NR (16:30)
[2021-12-28 17:05] LABS: PLATELET ESTIMATE NORMAL
[2021-12-28] MEDS: MEROPENEM 500 MG in SODIUM CHLORIDE 0.9% 50 ML IV SCH (17:16)
[2021-12-28] MEDS: EPOETIN ALFA 4000UNITS/ML VIAL SUBCUT SCH ×2 (20:51→20:55)
[2021-12-28] MEDS: EPOETIN ALFA 10000UNITS/ML VIAL SUBCUT SCH (20:56)
[2021-12-28] MEDS: INSULIN GLARGINE UD 100 UNITS/ML SYR SUBCUT SCH (21:04)
[2021-12-29] VITALS (21 sets, daily range): BP systolic 108–158; BP diastolic 44–66
[2021-12-29] MEDS: POLYVINYL ALCOHOL OPHTH DROPS 15ML LEFTEYE SCH ×6 (00:13→21:30)
[2021-12-29] MEDS: ACETYLCYSTEINE 100MG/ML 10% VIAL 4ML INH SCH ×3 (00:56→17:19)
[2021-12-29] MEDS: IPRATROPIUM/ALBUTEROL 0.5-3(2.5)MG/3ML NEB HHN SCH ×6 (00:56→20:01)
[2021-12-29] MEDS: LACTULOSE 20G/30ML UDC NG SCH ×3 (05:58→21:31)
[2021-12-29] MEDS: MIDODRINE HCL 5MG TABLET NG SCH ×3 (05:59→21:31)
[2021-12-29] MEDS: INSULIN LISPRO 100 UNITS/ML SUBCUT SCH ×5 (06:00→23:59)
[2021-12-29] MEDS: BLOOD SUGAR DIAGNOSTIC STRIP TEST SCH ×5 (06:00→23:55)
[2021-12-29] MEDS: LEVOTHYROXINE SODIUM 75MCG TABLET PO SCH (06:40)
[2021-12-29 07:13] LABS: HEMATOCRIT. 26.5 % (42.0-52.0); HEMOGLOBIN. 8.3 g/dL (14.0-18.0); MEAN CORPUSCULAR HEMOGLOBIN 29.4 pg (28.0-32.0); MEAN CORPUSCULAR VOLUME 94.2 fL (80.0-94.0); MEAN PLATELET VOLUME 7.6 fl (7.4-10.4); PLATELET 273 x1000/uL (130-400); RED BLOOD CELL COUNT 2.81 mill/uL (4.7-6.1); RED CELL DISTRIBUTION WIDTH 15.9 % (11.6-14.6)
[2021-12-29 08:25] LABS: PLATELET ESTIMATE NORMAL
[2021-12-29] MEDS: ENOXAPARIN 30MG/0.3ML SYR SUBCUT SCH (08:35)
[2021-12-29] MEDS: GENTAMICIN SULFATE 0.1% TOP SCH ×2 (08:36→21:30)
[2021-12-29] MEDS: DOCUSATE SODIUM SUGAR FREE 100MG/10ML UDC NG SCH (08:36)
[2021-12-29] MEDS: NYSTATIN 100,000 UNITS/GM CREAM 15GM TOP SCH ×2 (08:36→21:30)
[2021-12-29] MEDS: PREDNISOLONE ACETATE 1% OPHTH DROPS 5ML RIGHTEYE SCH ×2 (08:37→16:54)
[2021-12-29] MEDS: ASPIRIN 81MG TABLET PO SCH (08:37)
[2021-12-29] MEDS: PANTOPRAZOLE SODIUM 40 MG/VIAL IV SCH (08:37)
[2021-12-29] MEDS: CLOPIDOGREL 75MG TABLET NG SCH (08:49)
[2021-12-29] MEDS ORDERED: POTASSIUM CHLORIDE 20MEQ TABLET SR PO NR (11:45)
[2021-12-29] MEDS ORDERED: LIDOCAINE HCL/EPINEPHRINE 1%-EPI 1:100,000 20 ML VIAL INFIL NR (16:30)
[2021-12-29] MEDS: MEROPENEM 500 MG in SODIUM CHLORIDE 0.9% 50 ML IV SCH (17:40)
[2021-12-29] MEDS: HYDROMORPHONE HCL/PF 2MG/ML CPJ IV PRN (21:29)
[2021-12-29] MEDS: INSULIN GLARGINE UD 100 UNITS/ML SYR SUBCUT SCH (21:32)
[2021-12-30] VITALS (19 sets, daily range): BP systolic 119–146; BP diastolic 47–61
[2021-12-30] MEDS: ACETYLCYSTEINE 100MG/ML 10% VIAL 4ML INH SCH ×3 (00:14→17:00)
[2021-12-30] MEDS: IPRATROPIUM/ALBUTEROL 0.5-3(2.5)MG/3ML NEB HHN SCH ×6 (00:15→20:10)
[2021-12-30] MEDS: POLYVINYL ALCOHOL OPHTH DROPS 15ML LEFTEYE SCH ×6 (04:20→21:51)
[2021-12-30] MEDS: LACTULOSE 20G/30ML UDC NG SCH ×3 (05:56→21:46)
[2021-12-30] MEDS: LEVOTHYROXINE SODIUM 75MCG TABLET PO SCH (05:57)
[2021-12-30] MEDS: MIDODRINE HCL 5MG TABLET NG SCH ×3 (05:57→21:46)
[2021-12-30] MEDS: INSULIN LISPRO 100 UNITS/ML SUBCUT SCH ×2 (06:00→12:46)
[2021-12-30] MEDS: BLOOD SUGAR DIAGNOSTIC STRIP TEST SCH ×3 (06:02→18:26)
[2021-12-30 06:56] LABS: MEAN CORPUSCULAR HEMOGLOBIN 29.5 pg (28.0-32.0); MEAN CORPUSCULAR VOLUME 92.3 fL (80.0-94.0); MEAN PLATELET VOLUME 7.4 fl (7.4-10.4); PLATELET 275 x1000/uL (130-400); RED BLOOD CELL COUNT 2.71 mill/uL (4.7-6.1); RED CELL DISTRIBUTION WIDTH 15.9 % (11.6-14.6)
[2021-12-30 08:27] LABS: PLATELET ESTIMATE NORMAL
[2021-12-30] MEDS: ASPIRIN 81MG TABLET PO SCH (09:29)
[2021-12-30] MEDS: PANTOPRAZOLE SODIUM 40 MG/VIAL IV SCH (09:30)
[2021-12-30] MEDS: DOCUSATE SODIUM SUGAR FREE 100MG/10ML UDC NG SCH (09:30)
[2021-12-30] MEDS: ENOXAPARIN 40MG/0.4ML SYR SUBCUT SCH (09:30)
[2021-12-30] MEDS: GENTAMICIN SULFATE 0.1% TOP SCH ×2 (09:37→21:51)
[2021-12-30] MEDS: PREDNISOLONE ACETATE 1% OPHTH DROPS 5ML RIGHTEYE SCH ×3 (09:37→21:52)
[2021-12-30] MEDS: NYSTATIN 100,000 UNITS/GM CREAM 15GM TOP SCH ×2 (09:37→21:52)
[2021-12-30] MEDS: HYDROMORPHONE HCL/PF 2MG/ML CPJ IV PRN ×2 (09:47→15:53)
[2021-12-30] MEDS: CLOPIDOGREL 75MG TABLET NG SCH (10:34)
[2021-12-30] MEDS ORDERED: POTASSIUM CHLORIDE 20MEQ TABLET SR PO NR (12:00)
[2021-12-30] MEDS ORDERED: VANCOMYCIN 1G PREMIX 200 ML IV NR (21:00)
[2021-12-30] MEDS: MEROPENEM 500 MG in SODIUM CHLORIDE 0.9% 50 ML IV SCH (21:45)
[2021-12-30] MEDS: INSULIN GLARGINE UD 100 UNITS/ML SYR SUBCUT SCH (21:55)
[2021-12-30 22:03] LABS: HEPATITIS B SURFACE ANTIGEN NEGATIVE
[2021-12-31] VITALS (12 sets, daily range): BP systolic 129–164; BP diastolic 59–75
[2021-12-31] MEDS: INSULIN LISPRO 100 UNITS/ML SUBCUT SCH ×6 (00:03→23:47)
[2021-12-31] MEDS: BLOOD SUGAR DIAGNOSTIC STRIP TEST SCH ×5 (00:08→23:47)
[2021-12-31] MEDS: IPRATROPIUM/ALBUTEROL 0.5-3(2.5)MG/3ML NEB HHN SCH ×6 (00:12→20:37)
[2021-12-31] MEDS: POLYVINYL ALCOHOL OPHTH DROPS 15ML LEFTEYE SCH ×5 (00:48→17:29)
[2021-12-31] MEDS: LEVOTHYROXINE SODIUM 75MCG TABLET PO SCH (05:43)
[2021-12-31] MEDS: MIDODRINE HCL 5MG TABLET NG SCH ×3 (05:43→22:25)
[2021-12-31] MEDS: LACTULOSE 20G/30ML UDC NG SCH ×3 (05:43→22:25)
[2021-12-31 06:57] LABS: HEMATOCRIT. 25.9 % (42.0-52.0); HEMOGLOBIN. 8.1 g/dL (14.0-18.0); MEAN CORPUSCULAR HEMOGLOBIN 29.1 pg (28.0-32.0); MEAN CORPUSCULAR VOLUME 93.1 fL (80.0-94.0); MEAN PLATELET VOLUME 7.1 fl (7.4-10.4); PLATELET 298 x1000/uL (130-400); RED BLOOD CELL COUNT 2.78 mill/uL (4.7-6.1); RED CELL DISTRIBUTION WIDTH 16.5 % (11.6-14.6)
[2021-12-31] MEDS: ACETYLCYSTEINE 100MG/ML 10% VIAL 4ML INH SCH ×2 (08:33→16:18)
[2021-12-31] MEDS: ASPIRIN 81MG TABLET PO SCH (09:32)
[2021-12-31] MEDS: PANTOPRAZOLE SODIUM 40 MG/VIAL IV SCH (09:33)
[2021-12-31] MEDS: NYSTATIN 100,000 UNITS/GM CREAM 15GM TOP SCH ×2 (09:33→22:25)
[2021-12-31] MEDS: CLOPIDOGREL 75MG TABLET NG SCH (09:33)
[2021-12-31] MEDS: GENTAMICIN SULFATE 0.1% TOP SCH ×2 (09:34→22:26)
[2021-12-31] MEDS: ENOXAPARIN 40MG/0.4ML SYR SUBCUT SCH (09:45)
[2021-12-31] MEDS: DOCUSATE SODIUM SUGAR FREE 100MG/10ML UDC NG SCH (09:45)
[2021-12-31 13:15] LABS: PLATELET ESTIMATE NORMAL
[2021-12-31] MEDS: MEROPENEM 500 MG in SODIUM CHLORIDE 0.9% 50 ML IV SCH (17:27)
[2021-12-31] MEDS: PREDNISOLONE ACETATE 1% OPHTH DROPS 5ML RIGHTEYE SCH (17:28)
[2021-12-31] MEDS: [UNRECOGNIZED DRUG - OTHER] OP SCH (22:23)
[2021-12-31] MEDS: INSULIN GLARGINE UD 100 UNITS/ML SYR SUBCUT SCH (22:28)
[2021-12-31] MEDS: HYDROMORPHONE HCL/PF 2MG/ML CPJ IV PRN (22:43)
[2022-01-01] VITALS (13 sets, daily range): BP systolic 124–154; BP diastolic 52–65
[2022-01-01] MEDS: IPRATROPIUM/ALBUTEROL 0.5-3(2.5)MG/3ML NEB HHN SCH ×6 (00:37→20:18)
[2022-01-01] MEDS: ACETYLCYSTEINE 100MG/ML 10% VIAL 4ML INH SCH ×5 (00:37→22:00)
[2022-01-01] MEDS: [UNRECOGNIZED DRUG - OTHER] OP SCH ×5 (04:50→20:00)
[2022-01-01] MEDS: LACTULOSE 20G/30ML UDC NG SCH ×3 (05:14→21:13)
[2022-01-01] MEDS: INSULIN LISPRO 100 UNITS/ML SUBCUT SCH ×3 (05:15→17:47)
[2022-01-01] MEDS: BLOOD SUGAR DIAGNOSTIC STRIP TEST SCH ×3 (05:15→17:47)
[2022-01-01] MEDS: MIDODRINE HCL 5MG TABLET NG SCH ×3 (05:15→21:13)
[2022-01-01] MEDS: LEVOTHYROXINE SODIUM 75MCG TABLET PO SCH (08:04)
[2022-01-01] MEDS: CLOPIDOGREL 75MG TABLET NG SCH (08:04)
[2022-01-01] MEDS: ASPIRIN 81MG TABLET PO SCH (08:04)
[2022-01-01] MEDS: DOCUSATE SODIUM SUGAR FREE 100MG/10ML UDC NG SCH (08:04)
[2022-01-01] MEDS: NYSTATIN 100,000 UNITS/GM CREAM 15GM TOP SCH ×2 (08:06→21:11)
[2022-01-01] MEDS: GENTAMICIN SULFATE 0.1% TOP SCH ×2 (08:06→21:13)
[2022-01-01] MEDS: PREDNISOLONE ACETATE 1% OPHTH DROPS 5ML RIGHTEYE SCH ×2 (08:06→17:45)
[2022-01-01] MEDS: PANTOPRAZOLE SODIUM 40 MG/VIAL IV SCH (08:08)
[2022-01-01] MEDS: ENOXAPARIN 40MG/0.4ML SYR SUBCUT SCH (08:10)
[2022-01-01] MEDS: MEROPENEM 500 MG in SODIUM CHLORIDE 0.9% 50 ML IV SCH (17:45)
[2022-01-01] MEDS: HYDROMORPHONE HCL/PF 2MG/ML CPJ IV PRN (17:46)
[2022-01-01] MEDS: INSULIN GLARGINE UD 100 UNITS/ML SYR SUBCUT SCH (21:14)
[2022-01-02] VITALS (13 sets, daily range): BP systolic 124–165; BP diastolic 53–71
[2022-01-02] MEDS: IPRATROPIUM/ALBUTEROL 0.5-3(2.5)MG/3ML NEB HHN SCH ×6 (00:17→21:13)
[2022-01-02] MEDS: [UNRECOGNIZED DRUG - OTHER] OP SCH ×6 (04:03→19:50)
[2022-01-02] MEDS: INSULIN LISPRO 100 UNITS/ML SUBCUT SCH ×4 (06:00→17:16)
[2022-01-02] MEDS: BLOOD SUGAR DIAGNOSTIC STRIP TEST SCH ×4 (06:25→17:16)
[2022-01-02] MEDS: LACTULOSE 20G/30ML UDC NG SCH ×3 (06:25→21:29)
[2022-01-02] MEDS: MIDODRINE HCL 5MG TABLET NG SCH ×3 (06:25→21:28)
[2022-01-02 07:11] LABS: HEMATOCRIT. 24.3 % (42.0-52.0); HEMOGLOBIN. 7.7 g/dL (14.0-18.0); MEAN CORPUSCULAR HEMOGLOBIN 29.3 pg (28.0-32.0); MEAN CORPUSCULAR VOLUME 92.2 fL (80.0-94.0); MEAN PLATELET VOLUME 6.8 fl (7.4-10.4); PLATELET 275 x1000/uL (130-400); RED BLOOD CELL COUNT 2.64 mill/uL (4.7-6.1); RED CELL DISTRIBUTION WIDTH 16.1 % (11.6-14.6)
[2022-01-02] MEDS: DOCUSATE SODIUM SUGAR FREE 100MG/10ML UDC NG SCH (08:27)
[2022-01-02] MEDS: LEVOTHYROXINE SODIUM 75MCG TABLET PO SCH (08:27)
[2022-01-02] MEDS: CLOPIDOGREL 75MG TABLET NG SCH (08:27)
[2022-01-02] MEDS: ASPIRIN 81MG TABLET PO SCH (08:27)
[2022-01-02] MEDS: PANTOPRAZOLE SODIUM 40 MG/VIAL IV SCH (08:27)
[2022-01-02] MEDS: PREDNISOLONE ACETATE 1% OPHTH DROPS 5ML RIGHTEYE SCH ×2 (08:28→17:15)
[2022-01-02] MEDS: ENOXAPARIN 40MG/0.4ML SYR SUBCUT SCH (08:28)
[2022-01-02] MEDS: NYSTATIN 100,000 UNITS/GM CREAM 15GM TOP SCH ×2 (08:29→21:29)
[2022-01-02] MEDS: GENTAMICIN SULFATE 0.1% TOP SCH ×2 (08:29→21:29)
[2022-01-02] MEDS: HYDROMORPHONE HCL/PF 2MG/ML CPJ IV PRN (12:36)
[2022-01-02] MEDS ORDERED: NALOXONE HCL 0.4MG/ML VIAL IV PRN (16:30)
[2022-01-02] MEDS: MEROPENEM 500 MG in SODIUM CHLORIDE 0.9% 50 ML IV SCH (17:15)
[2022-01-02 17:29] LABS: PLATELET ESTIMATE NORMAL
[2022-01-02] MEDS: INSULIN GLARGINE UD 100 UNITS/ML SYR SUBCUT SCH (21:30)
[2022-01-03] VITALS (12 sets, daily range): BP systolic 92–161; BP diastolic 39–93
[2022-01-03] MEDS: [UNRECOGNIZED DRUG - OTHER] OP SCH ×6 (00:03→21:09)
[2022-01-03] MEDS: BLOOD SUGAR DIAGNOSTIC STRIP TEST SCH ×4 (00:04→18:15)
[2022-01-03] MEDS: IPRATROPIUM/ALBUTEROL 0.5-3(2.5)MG/3ML NEB HHN SCH ×6 (00:15→19:56)
[2022-01-03] MEDS: LACTULOSE 20G/30ML UDC NG SCH ×3 (05:52→21:11)
[2022-01-03] MEDS: MIDODRINE HCL 5MG TABLET NG SCH ×3 (05:53→21:16)
[2022-01-03] MEDS: INSULIN LISPRO 100 UNITS/ML SUBCUT SCH ×4 (06:00→18:00)
[2022-01-03 09:01] LABS: HEMATOCRIT. 26.6 % (42.0-52.0); HEMOGLOBIN. 8.4 g/dL (14.0-18.0); MEAN CORPUSCULAR HEMOGLOBIN 28.8 pg (28.0-32.0); MEAN CORPUSCULAR VOLUME 90.8 fL (80.0-94.0); MEAN PLATELET VOLUME 6.6 fl (7.4-10.4); PLATELET 295 x1000/uL (130-400); RED BLOOD CELL COUNT 2.93 mill/uL (4.7-6.1); RED CELL DISTRIBUTION WIDTH 16.1 % (11.6-14.6)
[2022-01-03] MEDS: CLOPIDOGREL 75MG TABLET NG SCH (09:42)
[2022-01-03] MEDS: PANTOPRAZOLE SODIUM 40 MG/VIAL IV SCH (09:42)
[2022-01-03] MEDS: ASPIRIN 81MG TABLET PO SCH (09:42)
[2022-01-03] MEDS: DOCUSATE SODIUM SUGAR FREE 100MG/10ML UDC NG SCH (09:42)
[2022-01-03] MEDS: LEVOTHYROXINE SODIUM 75MCG TABLET PO SCH (09:42)
[2022-01-03] MEDS: GENTAMICIN SULFATE 0.1% TOP SCH ×2 (09:43→21:09)
[2022-01-03] MEDS: PREDNISOLONE ACETATE 1% OPHTH DROPS 5ML RIGHTEYE SCH ×2 (09:43→17:35)
[2022-01-03] MEDS: NYSTATIN 100,000 UNITS/GM CREAM 15GM TOP SCH ×2 (09:43→21:10)
[2022-01-03 10:36] LABS: PLATELET ESTIMATE NORMAL
[2022-01-03 11:01] LABS: BG BASE EXCESS -1.2 mmol/L (-2.0-2.0); BG CARBOXYHEMOGLOBIN 0.2 % (0.5-1.5); BG DEOXYHEMOGLOBIN 2.6 % (0.0-5.0); BG FRACTION INSPIRED OXYGEN 35; BG HCO3 ACT 22.6 mmol/L (22.0-26.0); BG METHEMOGLOBIN 0.2 % (0.0-1.5); BG OXYGEN SATURATION 97.4 % (92.0-98.5); BG PCO2 34.1 mmHg (35.0-45.0); BG PH 7.439 (7.350-7.450); BG PO2 100.7 mmHg (75.0-100.0); BG SAMPLE SITE RIGHT RADIAL; BG TOTAL HEMOGLOBIN 8.8 g/dL (12.0-18.0); BG VENT MODE COOL AEROSOL
[2022-01-03] MEDS ORDERED: ALBUMIN HUMAN 25GM/500ML (5%) IV SCH (11:45)
[2022-01-03] MEDS: MORPHINE SULFATE 2 MG/ML CPJ (NOT FOR IM USE) IV PRN (15:41)
[2022-01-03] MEDS: MEROPENEM 500 MG in SODIUM CHLORIDE 0.9% 50 ML IV SCH (17:35)
[2022-01-03] MEDS ORDERED: VANCOMYCIN 750 MG in DEXT 5% WATER 250 ML IV NR (18:00)
[2022-01-03] MEDS: INSULIN GLARGINE UD 100 UNITS/ML SYR SUBCUT SCH (21:16)
[2022-01-04] VITALS (9 sets, daily range): BP systolic 100–134; BP diastolic 40–65
[2022-01-04] MEDS: IPRATROPIUM/ALBUTEROL 0.5-3(2.5)MG/3ML NEB HHN SCH ×4 (00:52→11:33)
[2022-01-04] MEDS: [UNRECOGNIZED DRUG - OTHER] OP SCH ×4 (04:00→12:52)
[2022-01-04] MEDS: INSULIN LISPRO 100 UNITS/ML SUBCUT SCH ×3 (06:00→12:00)
[2022-01-04] MEDS: LACTULOSE 20G/30ML UDC NG SCH (06:11)
[2022-01-04] MEDS: MIDODRINE HCL 5MG TABLET NG SCH (06:12)
[2022-01-04] MEDS: BLOOD SUGAR DIAGNOSTIC STRIP TEST SCH ×3 (06:12→12:47)
[2022-01-04 06:38] LABS: HEMATOCRIT. 24.1 % (42.0-52.0); HEMOGLOBIN. 7.7 g/dL (14.0-18.0); MEAN CORPUSCULAR HEMOGLOBIN 29.3 pg (28.0-32.0); MEAN CORPUSCULAR VOLUME 91.6 fL (80.0-94.0); MEAN PLATELET VOLUME 6.8 fl (7.4-10.4); PLATELET 277 x1000/uL (130-400); RED BLOOD CELL COUNT 2.63 mill/uL (4.7-6.1); RED CELL DISTRIBUTION WIDTH 16.1 % (11.6-14.6)
[2022-01-04] MEDS: LEVOTHYROXINE SODIUM 75MCG TABLET PO SCH (08:27)
[2022-01-04] MEDS: CLOPIDOGREL 75MG TABLET NG SCH (08:28)
[2022-01-04] MEDS: ENOXAPARIN 40MG/0.4ML SYR SUBCUT SCH (08:29)
[2022-01-04] MEDS: ASPIRIN 81MG TABLET PO SCH (08:29)
[2022-01-04] MEDS: DOCUSATE SODIUM SUGAR FREE 100MG/10ML UDC NG SCH (08:29)
[2022-01-04] MEDS: PREDNISOLONE ACETATE 1% OPHTH DROPS 5ML RIGHTEYE SCH (08:30)
[2022-01-04] MEDS: PANTOPRAZOLE SODIUM 40 MG/VIAL IV SCH (08:30)
[2022-01-04] MEDS: GENTAMICIN SULFATE 0.1% TOP SCH (08:31)
[2022-01-04] MEDS: NYSTATIN 100,000 UNITS/GM CREAM 15GM TOP SCH (08:31)
[2022-01-04] MEDS: MORPHINE SULFATE 2 MG/ML CPJ (NOT FOR IM USE) IV PRN (09:33)
[2022-01-04 11:15] LABS: NUCLEATED RED BLOOD CELLS 1 /100 WBC; PLATELET ESTIMATE NORMAL
== END 2022-01-04 14:20 | disposition short-term general hospital (02) | DRG 4 ==
LOC: ER 04:56 → 8WST 05:59 → EDBEDREQSVC 13:58 → ENRESERV 14:41 → CANRESERV 14:41 → ENRESERV 17:08 → 8WST 12-04 16:18 → MICUSO 12-06 08:58 → 5EST 12-21 20:50
PROVIDERS: ADMIT Hospitalist; ATTEND Hospitalist
PROC: 5A1955Z Respiratory Ventilation, Greater than 96 Consecutive Hours (ICD-10-PCS; principal; 2021-12-06)
PROC: 06HY33Z Insertion of Infusion Device into Lower Vein, Percutaneous Approach (ICD-10-PCS; 2021-12-06)
PROC: B54BZZA Ultrasonography of Right Lower Extremity Veins, Guidance (ICD-10-PCS; 2021-12-06)
PROC: 0BH17EZ Insertion of Endotracheal Airway into Trachea, Via Natural or Artificial Opening (ICD-10-PCS; 2021-12-17)
PROC: 5A1955Z Respiratory Ventilation, Greater than 96 Consecutive Hours (ICD-10-PCS; 2021-12-17)
PROC: 0BH17EZ Insertion of Endotracheal Airway into Trachea, Via Natural or Artificial Opening (ICD-10-PCS; 2021-12-17)
PROC: 0B110F4 Bypass Trachea to Cutaneous with Tracheostomy Device, Open Approach (ICD-10-PCS; 2021-12-20)
PROC: 4A10X4Z Monitoring of Central Nervous Electrical Activity, External Approach (ICD-10-PCS; 2021-12-23)
PROC: 0JB70ZZ Excision of Back Subcutaneous Tissue and Fascia, Open Approach (ICD-10-PCS; 2021-12-29)
DX: A41.1 Sepsis due to other specified staphylococcus (principal); L89.154 Pressure ulcer of sacral region, stage 4; J96.01 Acute respiratory failure with hypoxia; E43 Unspecified severe protein-calorie malnutrition; K72.00 Acute and subacute hepatic failure without coma; N18.6 End stage renal disease; J69.0 Pneumonitis due to inhalation of food and vomit; J96.02 Acute respiratory failure with hypercapnia; E87.1 Hypo-osmolality and hyponatremia; I13.2 Hypertensive heart and chronic kidney disease with heart failure and with stage 5 chronic kidney disease, or end stage renal disease; N17.9 Acute kidney failure, unspecified; G93.40 Encephalopathy, unspecified; I48.92 Unspecified atrial flutter; Z99.11 Dependence on respirator [ventilator] status; R18.8 Other ascites; M62.82 Rhabdomyolysis; J91.8 Pleural effusion in other conditions classified elsewhere; D63.1 Anemia in chronic kidney disease; E11.22 Type 2 diabetes mellitus with diabetic chronic kidney disease; E78.5 Hyperlipidemia, unspecified; E87.6 Hypokalemia; I50.9 Heart failure, unspecified; E03.9 Hypothyroidism, unspecified; E11.65 Type 2 diabetes mellitus with hyperglycemia; E87.5 Hyperkalemia; E88.09 Other disorders of plasma-protein metabolism, not elsewhere classified; I25.10 Atherosclerotic heart disease of native coronary artery without angina pectoris; K76.0 Fatty (change of) liver, not elsewhere classified; M47.9 Spondylosis, unspecified; M48.061 Spinal stenosis, lumbar region without neurogenic claudication; K80.20 Calculus of gallbladder without cholecystitis without obstruction; E83.41 Hypermagnesemia; R13.12 Dysphagia, oropharyngeal phase; E83.39 Other disorders of phosphorus metabolism; L89.626 Pressure-induced deep tissue damage of left heel; K82.8 Other specified diseases of gallbladder; I25.5 Ischemic cardiomyopathy; I48.0 Paroxysmal atrial fibrillation; K72.90 Hepatic failure, unspecified without coma; Z99.2 Dependence on renal dialysis; Z99.3 Dependence on wheelchair; Z95.5 Presence of coronary angioplasty implant and graft; Z87.01 Personal history of pneumonia (recurrent); I25.2 Old myocardial infarction; Z86.73 Personal history of transient ischemic attack (TIA), and cerebral infarction without residual deficits; Z86.16 Personal history of COVID-19; Z79.82 Long term (current) use of aspirin; Z79.4 Long term (current) use of insulin; Z79.02 Long term (current) use of antithrombotics/antiplatelets; Z88.8 Allergy status to other drugs, medicaments and biological substances; Z98.42 Cataract extraction status, left eye; Z98.41 Cataract extraction status, right eye
CPT/HCPCS: 31500; 36415; 36600; 70551; 71045; 71250; 72146; 72148; 74176; 76700; 76705; 76937; 80048; 80053; 80061; 80076; 80202; 81003; 82140; 82375; 82550; 82805; 82962; 83516; 83605; 83735; 83880; 84100; 84134; 84145; 84439; 84443; 84484; 85025; 85027; 86038; 86705; 86709; 86803; 87070; 87186; 87340; 87426; 87804; 92610; 93005; 93306; 93970; 94002; 94003; 94640; 94667; 95816; 97161; 97164; 99291; A6261; C1725; C1752; C1893; C9113; J0456; J0696; J0770; J0885; J1170; J1265; J1644; J1650; J1815; J2060; J2185; J2270; J2310; J2405; J2543; J2997; J3010; J3370; J3480; J3490; J7030; J7040; J7050; J7060; J7608; P9041